=== PATIENT | female | born 1960 | race Caucasian/White ===

== ENCOUNTER → 2021-10-21 12:44 | Outpatient (BNVA) | payer OTHER, SELFPAY | PROVIDERS: PCP Internal Medicine; Visit Provider Nurse Practitioner Family | DX: G43.009 Migraine without aura, not intractable, without status migrainosus (principal); G40.909 Epilepsy, unspecified, not intractable, without status epilepticus; R25.9 Unspecified abnormal involuntary movements | CPT/HCPCS: 99212 ==

== ENCOUNTER → 2022-01-20 12:39 | Outpatient (BNVA) | payer OTHER, SELFPAY | PROVIDERS: PCP Internal Medicine; Visit Provider Nurse Practitioner Family | DX: G43.009 Migraine without aura, not intractable, without status migrainosus (principal); R25.9 Unspecified abnormal involuntary movements; G40.909 Epilepsy, unspecified, not intractable, without status epilepticus; G93.1 Anoxic brain damage, not elsewhere classified; Z79.899 Other long term (current) drug therapy | CPT/HCPCS: 99212 ==

== ENCOUNTER → 2022-05-19 12:29 | Outpatient (BNVA) | payer OTHER, SELFPAY | PROVIDERS: PCP Internal Medicine; Visit Provider Nurse Practitioner Family | DX: G40.909 Epilepsy, unspecified, not intractable, without status epilepticus (principal); R25.9 Unspecified abnormal involuntary movements; G43.009 Migraine without aura, not intractable, without status migrainosus; G93.1 Anoxic brain damage, not elsewhere classified | CPT/HCPCS: 99212 ==

== ENCOUNTER → 2022-10-27 12:05 | Outpatient (BNVA) | payer OTHER, SELFPAY | PROVIDERS: PCP Internal Medicine; Visit Provider Nurse Practitioner Family | DX: G43.009 Migraine without aura, not intractable, without status migrainosus (principal) | CPT/HCPCS: 99212 ==

== ENCOUNTER 2023-04-12 12:14 | Outpatient (AMB) | payer OTHER, SELFPAY ==
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
[2023-04-12 12:54] VITALS: BP 118/78; PULSE 73; O2SAT 98; BMI 32.8
== END 2023-04-12 13:37 | disposition home or self-care (01) ==
PROVIDERS: Visit Provider Nurse Practitioner Family
DX: G40.909 Epilepsy, unspecified, not intractable, without status epilepticus (principal); R25.9 Unspecified abnormal involuntary movements; G43.009 Migraine without aura, not intractable, without status migrainosus; G93.1 Anoxic brain damage, not elsewhere classified
CPT/HCPCS: 99214

== ENCOUNTER → 2023-04-12 12:14 | Outpatient (BNVA) | payer OTHER, SELFPAY | PROVIDERS: Visit Provider Nurse Practitioner Family | DX: G40.909 Epilepsy, unspecified, not intractable, without status epilepticus (principal); G43.009 Migraine without aura, not intractable, without status migrainosus; G93.1 Anoxic brain damage, not elsewhere classified; R25.9 Unspecified abnormal involuntary movements | CPT/HCPCS: 99212 ==

== ENCOUNTER 2023-11-12 14:27 | Outpatient (AMB) | payer OTHER, SELFPAY ==
[2023-11-12 14:29] VITALS: BP 128/70; PULSE 93; O2SAT 98; BMI 34.0
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
== END 2023-11-12 15:18 | disposition home or self-care (01) ==
PROVIDERS: PCP Internal Medicine; Visit Provider Nurse Practitioner Family
DX: G43.009 Migraine without aura, not intractable, without status migrainosus (principal); G40.909 Epilepsy, unspecified, not intractable, without status epilepticus; R25.9 Unspecified abnormal involuntary movements; G93.1 Anoxic brain damage, not elsewhere classified
CPT/HCPCS: 99214

== ENCOUNTER → 2023-11-12 14:27 | Outpatient (BNVA) | payer OTHER, SELFPAY | PROVIDERS: PCP Internal Medicine; Visit Provider Nurse Practitioner Family | DX: G43.009 Migraine without aura, not intractable, without status migrainosus (principal); G40.909 Epilepsy, unspecified, not intractable, without status epilepticus; R25.9 Unspecified abnormal involuntary movements; G93.1 Anoxic brain damage, not elsewhere classified | CPT/HCPCS: 99212 ==

== ENCOUNTER 2024-02-28 10:50 | Outpatient (AMB) | payer OTHER, SELFPAY ==
--- NOTE | 2024-02-28 11:10 | A.OFFVIS_ITS ---
Vital Signs 02/28/24 11:12 Height 5 ft 4 in Weight 192 lb BMI 33.0 BP 120/72 Blood Pressure Location Rt brachial Position Sitting Pulse 84 Pulse Source Pulse Oximeter Pulse Oximetry (%) 97 Oxygen Delivery Method Room Air Intake Visit Reasons: Follow Up Intake Note: Patient presents for follow up. Patient has no concerns today. Allergies bee venom protein (honey bee) Allergy (Severe, Verified 02/28/24 11:13) Anaphylaxis Penicillins Allergy (Severe, Verified 02/28/24 11:13) Anaphylaxis Sulfa (Sulfonamide Antibiotics) Allergy (Severe, Verified 02/28/24 11:13) Hives mayonnaise Allergy (Intermediate, Verified 02/28/24 11:13) Hives aspirin Allergy (Mild, Verified 02/28/24 11:13) Unknown rofecoxib [From Vioxx] Allergy (Unknown, Verified 02/28/24 11:13) Unknown erythromycin Allergy (Severe, Uncoded 02/28/24 11:13) Anaphylaxis Medication List - Last Reconciled 02/28/24 by DELBERT Breen atorvastatin mg PO blood-glucose sensor (Dexcom G6 Sensor device) As directed clonazepam 0.25 - 0.5 mg (1 - 2 x 0.25 mg) PO BID PRN 30 days clopidogrel 75 mg PO DAILY gabapentin 300 mg PO DAILY galcanezumab-gnlm (Emgality Pen) 120 mg subcut ONCE 30 days [gammacore saphire 2 2-minute stimulations to 1 side of the neck TID, may repeat in 20 minutes if no effect] glipizide 5 mg PO BID indomethacin 25 mg PO BEDTIME lorazepam 1 mg PO TID PRN 30 days metformin ER 500 mg PO DAILY oxcarbazepine 300 mg PO BID 30 days sertraline 50 mg PO DAILY trazodone 100 mg PO BEDTIME ubrogepant (Ubrelvy) 50 - 100 mg (0.5 - 1 x 100 mg) PO ONCE PRN 30 days HPI Comments Details: 64-yr-old female presents for f/u visit. Pt is scheduled for Left knee labrum tear repair on 03/24/24 through [facility] at [facility]. [facility] has requested surgical clearance from us. She did see her PCP at the [place] yesterday- had She also saw endocrinology at the [place] yesterday. Her HgA1C was 9.3%. She was advised to start insulin and was referred to a life educator. She states her seizure like activity- the tremor and skaking0 has been stable, however had a rough night . [place] she would have breakthrough seizure like activity, however was able to suppress this with her prn Lorazepam. She felt this was triggered by the stress of learning she may need to start insulin. Has not had any seizure activity a/w LOC. She is tolerating the increase in Trileptal well. Her migraines have been well-controlled. 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 Mild dysarthria Mild antalgic gait Antalgic gait- wearing left knee brace General: patient oriented x3 Cranial nerves: Yes CN's II-XII intact bilaterally Cognition (Neuro): normal cognition Psych Appearance: grossly normal Mental Status: mental status grossly normal Speech and movement: Normal speech and movement present Affect: normal affect Attitude: cooperative Assessment & Plan Assessment & Plan (1) Migraine without aura: Code(s): G43.009 - Migraine without aura, not intractable, without status migrainosus Category: Medical (2) Epilepsy: Code(s): G40.909 - Epilepsy, unspecified, not intractable, without status epilepticus Category: Medical (3) Abnormal movements: Code(s): R25.9 - Unspecified abnormal involuntary movements Category: Medical (4) Hypoxic brain injury: Comment: In 1978 Code(s): G93.1 - Anoxic brain damage, not elsewhere classified Category: Medical Plan From a neurological standpoint, pt may undergo upcoming left knee surgical repair. Pt should continue her current medication regimen. 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 Nutrition education information shared w/ pt- [email or web address], ADA diabetes & food to review before her upcoming Diabetes education appt. For seizures/abnormal movements: Improved with increased Trileptal dose. Continue Trileptal 300mg bid. Continue Lorazepam 1mg tid prn. [facility] ? For episodic migraines: Continue Emgality 120 mg sc q month for migraine prevention.? Consider using a mail-order specialty pharmacy or [facility]. Ubrelvy 100mg prn, MR in 2 hrs (max 200mg per day). Try taking at the 1st sign of seeing spots and hold Lorazepam- to help elicit if these are epileptic versus migraine aura s/s. Continue GammaCore vagal nerve stimulator for both episodic migraine preventive and acute treatment. Patient has previously failed amitriptyline and Topamax.? Treatment contraindications: Sumatriptan-generalized tonic clonic seizure dz. She is not a candidate to use beta-blockers or antihypertensive agents due to risk for hypotension. ? f/u in 6 months or sooner prn. Coding Level of Care Code Est Pt Level 4 (38501) Diagnoses Migraine without aura G43.009 Epilepsy G40.909 Abnormal movements R25.9 Hypoxic brain injury G93.1
[2024-02-28 11:12] VITALS: BP 120/72; PULSE 84; O2SAT 97; BMI 33.0
== END 2024-02-28 11:48 | disposition home or self-care (01) ==
PROVIDERS: PCP Internal Medicine; Visit Provider Nurse Practitioner Family
DX: G43.009 Migraine without aura, not intractable, without status migrainosus (principal); G40.909 Epilepsy, unspecified, not intractable, without status epilepticus; R25.9 Unspecified abnormal involuntary movements; G93.1 Anoxic brain damage, not elsewhere classified
CPT/HCPCS: 99214

== ENCOUNTER → 2024-02-28 10:50 | Outpatient (BNVA) | payer OTHER, SELFPAY | PROVIDERS: PCP Internal Medicine; Visit Provider Nurse Practitioner Family | DX: G93.1 Anoxic brain damage, not elsewhere classified (principal); R25.9 Unspecified abnormal involuntary movements; G40.909 Epilepsy, unspecified, not intractable, without status epilepticus; G43.009 Migraine without aura, not intractable, without status migrainosus | CPT/HCPCS: 99212 ==

== ENCOUNTER 2024-05-13 09:20 | Outpatient (AMB) | payer OTHER, SELFPAY ==
[2024-05-13 09:48] VITALS: BP 118/70; BMI 33.1
--- NOTE | 2024-05-13 09:48 | A.OFFVIS_ITS ---
Vital Signs 05/13/24 09:48 Height 5 ft 4 in Weight 193 lb BMI 33.1 BP 118/70 Blood Pressure Location Rt brachial Position Sitting Intake Visit Reasons: 6m follow up Intake Note: Patient presents for follow up Allergies bee venom protein (honey bee) Allergy (Severe, Verified 05/13/24 09:51) Anaphylaxis Penicillins Allergy (Severe, Verified 05/13/24 09:51) Anaphylaxis Sulfa (Sulfonamide Antibiotics) Allergy (Severe, Verified 05/13/24 09:51) Hives mayonnaise Allergy (Intermediate, Verified 05/13/24 09:51) Hives aspirin Allergy (Mild, Verified 05/13/24 09:51) Unknown rofecoxib [From Vioxx] Allergy (Unknown, Verified 05/13/24 09:51) Unknown erythromycin Allergy (Severe, Uncoded 05/13/24 09:51) Anaphylaxis Medication List - Last Reconciled 05/13/24 by DELBERT Breen atorvastatin mg PO blood-glucose sensor ([employer] G6 Sensor device) As directed clonazepam 0.25 - 0.5 mg (1 - 2 x 0.25 mg) PO BID PRN 30 days clopidogrel 75 mg PO DAILY gabapentin 300 mg PO DAILY galcanezumab-gnlm (Emgality Pen) 120 mg subcut ONCE 30 days [gammacore saphire 2 2-minute stimulations to 1 side of the neck TID, may repeat in 20 minutes if no effect] glipizide 5 mg PO BID indomethacin 25 mg PO BEDTIME lorazepam 1 mg PO TID PRN 30 days metformin ER 500 mg PO DAILY oxcarbazepine 300 mg PO BID 30 days sertraline 50 mg PO DAILY trazodone 100 mg PO BEDTIME ubrogepant (Ubrelvy) 50 - 100 mg (0.5 - 1 x 100 mg) PO ONCE PRN 30 days HPI Comments Details: 64-yr-old female presents for f/u visit of seizure, involuntary movements, and migraine. Pt is accompanied by her . Pt underwent Left knee labrum tear repair on 04/18/24 through [facility] at [facility]. Pt reports she has since had burning pains running down from the knee into her wilde. She did trip yesterday, overall, feels like she needs to lift her LLE higher when she is walking. She states she is doing home PT exercises but not home PT. She does note that she accidentally taking atorvastatin 80mg instead of 40mg- as she did not realize that she was supposed to cut the 80mg tab in half. [facility]. She states she has only had increased pain in the LLE. Denies other/new muscle cramps, urinary color changes, abd pain. She states her seizure like activity is not too good . Her episodes are triggered by the bad weather changes. She is having longer episodes. She is needing to take lorazepam, and then a second dose within an hour as she continues to have tremors and full body generalized spasticity. Has not had any seizure activity a/w LOC. She was taking Trileptal 300mg bid- but this causing daytime sleepiness- so she decreased it to 150mg qam and 300mg. She is wondering if she would benefit from increasing Trileptal or Lorazepam dose. She has not been having any recent migraines. 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 Left facial hemispasm- Slightly more pronounced dysarthria Gait a bit more unsteady, increased left high step. Decreased left foot taps. No trmeor. General: patient oriented x3 Cranial nerves: Yes CN's II-XII intact bilaterally Cognition (Neuro): normal cognition Psych Appearance: grossly normal Mental Status: mental status grossly normal Affect: normal affect Attitude: cooperative Assessment & Plan Assessment & Plan (1) Epilepsy: Code(s): G40.909 - Epilepsy, unspecified, not intractable, without status epilepticus Category: Medical (2) Abnormal movements: Code(s): R25.9 - Unspecified abnormal involuntary movements Category: Medical (3) Migraine without aura: Code(s): G43.009 - Migraine without aura, not intractable, without status migrainosus Category: Medical (4) Hypoxic brain injury: Comment: In 1978 Code(s): G93.1 - Anoxic brain damage, not elsewhere classified Category: Medical (5) Spasticity: Code(s): R25.2 - Cramp and spasm Category: Medical Plan Pt's baseline neuro deficits appear more pronounced today, ? if this is r/t recent surgery, poor sleep, left knee pain, increased weather changes. Will check labs. I do not think f/u head imaging is indicated at this time, as there are no new neuro s/s. Advised pt to discuss referring her for a new LLE AFO fitting as she no longer has her old AFO and is tripping more on her left foot. For seizures/abnormal movements: Pt has reduced her Trileptal dose from 300mg bid t0 150mg qam and 300mg qhs, however she is now having increased episodes. For now Trileptal 150mg qam and 300mg qhs. Will check labs. Upon review, consider increasing Trileptal to 150mg bid and 300mg qhs or trying Aptiom. Continue Lorazepam 1mg tid prn- i would not increase this further at this time. For episodic migraines: Continue Emgality 120 mg sc q month for migraine prevention.? Consider using a mail-order specialty pharmacy or sending through the [facility]. Ubrelvy 100mg prn, MR in 2 hrs (max 200mg per day). Try taking at the 1st sign of seeing spots and hold Lorazepam- to help elicit if these are epileptic versus migraine aura s/s. Continue GammaCore vagal nerve stimulator for both episodic migraine preventive and acute treatment. Patient has previously failed amitriptyline and Topamax.? Treatment contraindications: Sumatriptan-generalized tonic clonic seizure dz. She is not a candidate to use beta-blockers or antihypertensive agents due to risk for hypotension. ? f/u in 3-6 months or sooner prn. Orders: Orders Complete Blood Count Auto Diff Today G40.909 - Epilepsy, unspecified, not intractable, without status epilepticus, G43.009 - Migraine without aura, not intractable, without status migrainosus, G93.1 - Anoxic brain damage, not elsewhere classified, R25.2 - Cramp and spasm, R25.9 - Unspecified abnormal involuntary movements Creatine Kinase Total Today G40.909 - Epilepsy, unspecified, not intractable, without status epilepticus, G43.009 - Migraine without aura, not intractable, without status migrainosus, G93.1 - Anoxic brain damage, not elsewhere classified, R25.2 - Cramp and spasm, R25.9 - Unspecified abnormal involuntary movements Magnesium Today G40.909 - Epilepsy, unspecified, not intractable, without status epilepticus, G43.009 - Migraine without aura, not intractable, without status migrainosus, G93.1 - Anoxic brain damage, not elsewhere classified, R25.2 - Cramp and spasm, R25.9 - Unspecified abnormal involuntary movements CRP High Sensitivity Today G40.909 - Epilepsy, unspecified, not intractable, without status epilepticus, G43.009 - Migraine without aura, not intractable, without status migrainosus, G93.1 - Anoxic brain damage, not elsewhere classified, R25.2 - Cramp and spasm, R25.9 - Unspecified abnormal involuntary movements TSH reflex Free T4 Today G40.909 - Epilepsy, unspecified, not intractable, without status epilepticus, G43.009 - Migraine without aura, not intractable, without status migrainosus, G93.1 - Anoxic brain damage, not elsewhere classified, R25.2 - Cramp and spasm, R25.9 - Unspecified abnormal involuntary movements Vitamin B12 and Folate Today G40.909 - Epilepsy, unspecified, not intractable, without status epilepticus, G43.009 - Migraine without aura, not intractable, without status migrainosus, G93.1 - Anoxic brain damage, not elsewhere classified, R25.2 - Cramp and spasm, R25.9 - Unspecified abnormal involuntary movements Comprehensive Met. Panel Today G40.909 - Epilepsy, unspecified, not intractable, without status epilepticus, G43.009 - Migraine without aura, not intractable, without status migrainosus, G93.1 - Anoxic brain damage, not elsewhere classified, R25.2 - Cramp and spasm, R25.9 - Unspecified abnormal involuntary movements Erythrocyte Sedimentation Rate Today G40.909 - Epilepsy, unspecified, not intractable, without status epilepticus, G43.009 - Migraine without aura, not intractable, without status migrainosus, G93.1 - Anoxic brain damage, not elsewhere classified, R25.2 - Cramp and spasm, R25.9 - Unspecified abnormal involuntary movements Coding Level of Care Code Est Pt Level 4 (20062) Diagnoses Epilepsy G40.909 Abnormal movements R25.9 Migraine without aura G43.009 Hypoxic brain injury G93.1 Spasticity R25.2
== END 2024-05-13 10:31 | disposition home or self-care (01) ==
PROVIDERS: PCP Internal Medicine; Visit Provider Nurse Practitioner Family
DX: G40.909 Epilepsy, unspecified, not intractable, without status epilepticus (principal); R25.9 Unspecified abnormal involuntary movements; G43.009 Migraine without aura, not intractable, without status migrainosus; G93.1 Anoxic brain damage, not elsewhere classified; R25.2 Cramp and spasm
CPT/HCPCS: 99214

== ENCOUNTER 2024-05-13 10:32 | Outpatient (REF) | payer OTHER, SELFPAY ==
[2024-05-13 17:52] LABS: MANUAL DIFF FLAG NO
[2024-05-13 18:14] LABS: Basophils Percent Auto 0.4 % (0-2); Eosinophils Absolute Auto 0.2 X10*3/uL (0.0-0.4); Eosinophils Percent Auto 2.6 % (0-4); Hematocrit 38.6 % (37.0-47.0); Hemoglobin 13.1 g/dl (12.0-16.0); Imm Gran Abs Auto 0.04 X10*3/uL (0.00-0.03); Imm Gran Pct Auto 0.5 % (0.0-0.4); Lymphocytes Absolute Auto 1.3 X10*3/uL (1.2-4.9); Lymphocytes Percent Auto 17.9 % (20-40); Mean Corpuscular HGB Conc 33.9 g/dl (31.0-35.0); Mean Corpuscular Hemoglobin 28.8 pg (27.0-33.0); Mean Corpuscular Volume 84.8 fL (80.0-98.0); Mean Platelet Volume 9.4 fL (9.4-12.3); Monocytes Absolute Auto 0.4 X10*3/uL (0.1-1.2); Monocytes Percent Auto 4.8 % (2-11); Neutrophils Absolute Auto 5.4 x10*3/uL (2.0-8.3); Neutrophils Percent Auto 73.8 % (45-73); Platelet Count 301 X10*3/uL (160-400); Red Blood Count 4.55 X10*6/uL (4.20-5.50); Red Cell Distribution Width 13.5 % (11.0-16.0); White Blood Count 7.3 X10*3/uL (4.8-10.8)
[2024-05-13 18:25] LABS: Alanine Aminotransferase 33 U/L (0-31); Albumin Level 4.1 g/dL (3.5-5.0); Alkaline Phosphatase 168 U/L (39-117); Anion Gap 12 (12-20); Aspartate Amino Transferase 21 U/L (5-31); Bilirubin Total 0.2 mg/dL (0.0-1.0); Blood Urea Nitrogen 17 mg/dL (9-16); Calcium 9.8 mg/dL (8.4-10.2); Carbon Dioxide 28 mmol/L (22-29); Chloride 105 mmol/L (96-108); Estimated Glomerular Filt Rate > 60; Glucose Random 217 mg/dL (60-115); Magnesium 1.8 mg/dL (1.6-2.6); Sodium 141 mmol/L (135-145); Total Protein 7.6 g/dL (6.5-8.0)
[2024-05-13 18:41] LABS: TSH reflex Free T4 0.81 uIU/mL (0.32-4.0)
[2024-05-13 18:59] LABS: Folate 13.9 ng/mL (> or = 4.0); Vitamin B12 603 pg/mL (200-900)
[2024-05-13 19:20] LABS: Erythrocyte Sedimentation Rate 58 MM/HR (0-20)
[2024-05-14 09:03] LABS: CRP High Sensitivity 8.3 mg/L
== END 2024-05-13 10:33 | disposition home or self-care (01) ==
LOC: HO.HKASLDS 10:32
PROVIDERS: Visit Provider Nurse Practitioner Family
DX: G40.909 Epilepsy, unspecified, not intractable, without status epilepticus (principal); G43.009 Migraine without aura, not intractable, without status migrainosus; R25.2 Cramp and spasm; G93.1 Anoxic brain damage, not elsewhere classified; R25.9 Unspecified abnormal involuntary movements; Z79.899 Other long term (current) drug therapy; Z98.890 Other specified postprocedural states
CPT/HCPCS: 36415; 80053; 82550; 82607; 82746; 83735; 84443; 85025; 85652; 86141; 99212

== ENCOUNTER → 2024-05-13 | Outpatient (BNVA) | payer OTHER, SELFPAY | PROVIDERS: PCP Internal Medicine; Visit Provider Nurse Practitioner Family | DX: G40.909 Epilepsy, unspecified, not intractable, without status epilepticus (principal); R25.9 Unspecified abnormal involuntary movements; G93.1 Anoxic brain damage, not elsewhere classified; Z91.85 Personal history of military service | CPT/HCPCS: 99212 ==

== ENCOUNTER 2024-06-02 12:30 | Outpatient (REF) | payer OTHER, SELFPAY ==
--- NOTE | ~2024-06-02 | MR_ITS ---
EXAMINATION: MR BRAIN WITHOUT CONTRAST CLINICAL INFORMATION: Epilepsy. Dysarthria. Increased spasticity history of hypoxia. Spasm. COMPARISON: No priors. Prior CT brain dated February 08, 2011 is not available on PACS system. TECHNIQUE: MRI of the brain was obtained using routine sequences without contrast. FINDINGS: No restricted diffusion. No acute intracranial hemorrhage, mass effect, midline shift, hydrocephalus or herniation. Hutchins-white matter differentiation is normal. Posterior cranial fossa contents are normal. Sellar/suprasellar region is normal. Craniocervical junction is intact and normal. Slight asymmetric volume loss without signal abnormality, left hippocampus. There is no prominence of the temporal horns of the lateral ventricles. Flow-void signal within the main cerebral vessels is normal. MR/MR head/brain wo con IMPRESSION: No acute stroke or acute brain abnormality. Electronically signed by: Geovany Marina MD 06/02/2024 01:56 PM EDT
== END 2024-06-02 12:31 | disposition home or self-care (01) ==
LOC: HO.MRI 12:30
PROVIDERS: PCP Internal Medicine; Visit Provider Nurse Practitioner Family
DX: R25.2 Cramp and spasm (principal); G93.1 Anoxic brain damage, not elsewhere classified; R25.9 Unspecified abnormal involuntary movements
CPT/HCPCS: 70551

== ENCOUNTER → 2024-06-02 12:40 | Outpatient (BNV) | payer OTHER, SELFPAY | PROVIDERS: PCP Internal Medicine; Visit Provider Radiology Diagnostic Radiology | DX: R47.1 Dysarthria and anarthria (principal); G40.909 Epilepsy, unspecified, not intractable, without status epilepticus | CPT/HCPCS: 70551 ==

== ENCOUNTER 2024-06-05 07:17 | Outpatient (REF) | payer OTHER, SELFPAY ==
[2024-06-05 07:44] LABS: MANUAL DIFF FLAG NO
[2024-06-05 08:46] LABS: Basophils Percent Auto 0.5 % (0-2); Eosinophils Absolute Auto 0.2 X10*3/uL (0.0-0.4); Eosinophils Percent Auto 2.4 % (0-4); Hematocrit 35.8 % (37.0-47.0); Hemoglobin 11.8 g/dl (12.0-16.0); Imm Gran Abs Auto 0.02 X10*3/uL (0.00-0.03); Imm Gran Pct Auto 0.3 % (0.0-0.4); Lymphocytes Absolute Auto 1.5 X10*3/uL (1.2-4.9); Lymphocytes Percent Auto 24.3 % (20-40); Mean Corpuscular Hemoglobin 28.6 pg (27.0-33.0); Mean Corpuscular Volume 86.7 fL (80.0-98.0); Mean Platelet Volume 9.3 fL (9.4-12.3); Monocytes Absolute Auto 0.4 X10*3/uL (0.1-1.2); Neutrophils Absolute Auto 4.1 x10*3/uL (2.0-8.3); Neutrophils Percent Auto 66.5 % (45-73); Platelet Count 257 X10*3/uL (160-400); Red Blood Count 4.13 X10*6/uL (4.20-5.50); Red Cell Distribution Width 13.4 % (11.0-16.0); White Blood Count 6.1 X10*3/uL (4.8-10.8)
[2024-06-05 09:22] LABS: Alanine Aminotransferase 27 U/L (0-31); Albumin Level 3.7 g/dL (3.5-5.0); Alkaline Phosphatase 151 U/L (39-117); Anion Gap 11 (12-20); Aspartate Amino Transferase 20 U/L (5-31); Bilirubin Total 0.3 mg/dL (0.0-1.0); Blood Urea Nitrogen 17 mg/dL (9-16); Calcium 9.4 mg/dL (8.4-10.2); Carbon Dioxide 28 mmol/L (22-29); Chloride 105 mmol/L (96-108); Estimated Glomerular Filt Rate > 60; Glucose Random 173 mg/dL (60-115); Potassium 4.1 mmol/L (3.3-5.1); Sodium 140 mmol/L (135-145); Total Protein 6.7 g/dL (6.5-8.0)
[2024-06-05 09:26] LABS: Erythrocyte Sedimentation Rate 44 MM/HR (0-20)
[2024-06-06 11:08] LABS: CRP High Sensitivity 4.8 mg/L
[2024-06-10 01:17] LABS: Oxcarbazepine 10.1 mcg/mL (8.0-35.0)
== END 2024-06-05 07:18 | disposition home or self-care (01) ==
LOC: HO.LAB 07:17
PROVIDERS: Visit Provider Nurse Practitioner Family
DX: G40.909 Epilepsy, unspecified, not intractable, without status epilepticus (principal); R47.1 Dysarthria and anarthria; R70.0 Elevated erythrocyte sedimentation rate; G43.009 Migraine without aura, not intractable, without status migrainosus; R25.2 Cramp and spasm; G93.1 Anoxic brain damage, not elsewhere classified; R25.9 Unspecified abnormal involuntary movements
CPT/HCPCS: 36415; 80053; 80339; 85025; 85652; 86141

== ENCOUNTER 2024-07-09 09:31 | Outpatient (AMB) | payer OTHER, SELFPAY ==
[2024-07-09 09:41] VITALS: BP 130/70; PULSE 84; O2SAT 98; BMI 33.0
--- NOTE | 2024-07-09 09:41 | MHC.OFFVIS ---
Vital Signs 07/09/24 09:41 Height 5 ft 4 in Weight 192 lb BMI 33.0 BP 130/70 Blood Pressure Location Lt brachial Position Sitting Pulse 84 Pulse Source Pulse Oximeter Pulse Oximetry (%) 98 Oxygen Delivery Method Room Air Intake Visit Reasons: Follow Up [employer] Required: No Accompanied by: Spouse Allergies bee venom protein (honey bee) Allergy (Severe, Verified 07/09/24 09:43) Anaphylaxis Penicillins Allergy (Severe, Verified 07/09/24 09:43) Anaphylaxis Sulfa (Sulfonamide Antibiotics) Allergy (Severe, Verified 07/09/24 09:43) Hives mayonnaise Allergy (Intermediate, Verified 07/09/24 09:43) Hives aspirin Allergy (Mild, Verified 07/09/24 09:43) Unknown rofecoxib [From Vioxx] Allergy (Unknown, Verified 07/09/24 09:43) Unknown erythromycin Allergy (Severe, Uncoded 05/13/24 09:51) Anaphylaxis Medication List - Last Reconciled 07/09/24 by DELBERT Breen atorvastatin mg PO blood-glucose sensor ([email or web address] G6 Sensor device) As directed clopidogrel 75 mg PO DAILY gabapentin 300 mg PO DAILY galcanezumab-gnlm (Emgality Pen) 120 mg subcut ONCE 30 days [gammacore saphire 2 2-minute stimulations to 1 side of the neck TID, may repeat in 20 minutes if no effect] glipizide 5 mg PO BID indomethacin 25 mg PO BEDTIME lorazepam 1 mg PO TID PRN 30 days metformin ER 500 mg PO DAILY oxcarbazepine 300 mg PO BID 30 days sertraline 50 mg PO DAILY trazodone 100 mg PO BEDTIME ubrogepant (Ubrelvy) 50 - 100 mg (0.5 - 1 x 100 mg) PO ONCE PRN 30 days HPI Comments Details: 64-yr-old female presents for urgent follow-up for increased ?spasticity and balls? in setting of seizure, involuntary movements, and migraine. Pt is accompanied by her . Pt reports that she has been having increased falls, however she clarifies this is one fall this past Sat. Patient had called the office with complaint of increased spasticity and shakiness. We trialed patient on diazepam 2 mg, which subsided the episode, but made her feel loopy so she only took 1 dose. Sense, she is still noticing increased shakiness and seizures, especially around 3am when she gets up to go to the bathroom or between 9am-2pm. The shakiness can be whole body, and can last between 5 minutes and an hour. The episode is harder to treat when it happens in public, such as when she is out at a restaurant. It usually responds to lorazepam, however can take longer for lorazepam to take effect now. is asking for an injectable version of lorazepam. She is is overall feeling more off-balance and weaker. Patient did undergo an interval brain MRI without contrast on 06/02/2024, which was unremarkable Patient also notes that she was admitted to [facility] on 06/25/24 d/t acute on chronic pancreatitis with clear trigger for acute exacerbation. Patient denies any alcohol intake Work-up was notable for: Elevated lipase 888H, on discharge decreased to 274 H. On 06/18/24, lipase was 26 NL Positive UA for WBC and bacteria- unfortunately I am not able to access culture report. Abd CT: No acute abnormality on noncontrast CT of the abdomen and pelvis. No imaging evidence for pancreatitis. No regional stranding or fluid collection. Recommend further correlation with pancreatic enzyme markers. There is similar atrophy of the pancreas with relative fullness at the level of the pancreatic head when compared to the CT of 06/05/2024 and 12/04/2021, which could relate to relative sparing. Pt states she was d/c'd home w/o home care sevrices, though d/c paperwork indicates these were ordered. Since being home, pt notes she still has a poor appetite. She is feeling overall more week. [facility] Discharge Labs WBC 9.1 k/mm3 ()? 06/26/2024 06:05 RBC 3.96 m/mm3 (Low)? 06/26/2024 06:05 Hgb 11.1 Gm/dL (Low)? 06/26/2024 06:05 Hct 34.0 % (Low)? 06/26/2024 06:05 MCV 85.9 femtoliters ()? 06/26/2024 06:05 MCH 28.0 pg ()? 06/26/2024 06:05 MCHC 32.6 Gm/dL (Low)? 06/26/2024 06:05 Platelet Count 226 k/mm3 ()? 06/26/2024 06:05 RDW-SD 41.6 femtoliters ()? 06/26/2024 06:05 MPV 9.2 femtoliters (Low)? 06/26/2024 06:05 Nucleated RBC (Automated) 0.0 #/100 WBC'S ()? 06/26/2024 06:05 Abs. NRBC 0.0 k/mm3 ()? 06/26/2024 06:05 Abs. Neut 8.2 k/mm3 (High)? 06/25/2024 08:32 Abs. Lymph 1.5 k/mm3 ()? 06/25/2024 08:32 Abs. [place] 0.6 k/mm3 ()? 06/25/2024 08:32 Abs. Eo 0.1 k/mm3 ()? 06/25/2024 08:32 Abs. Baso 0.0 k/mm3 ()? 06/25/2024 08:32 Neut % 78.0 % (High)? 06/25/2024 08:32 Lymph % 14.3 % (Low)? 06/25/2024 08:32 [place] % 6.0 % ()? 06/25/2024 08:32 Eos % 1.0 % ()? 06/25/2024 08:32 Baso % 0.2 % ()? 06/25/2024 08:32 Imm Gran 0.5 % ()? 06/25/2024 08:32 Abs. Imm Gran 0.1 k/mm3 ()? 06/25/2024 08:32 High Sensitivity Troponin (HSTnT) <6 ng/L ()? 06/25/2024 08:32 ? ? ? Sodium 136 mmol/L ()? 06/26/2024 06:05 Potassium 3.9 mmol/L ()? 06/26/2024 06:05 Chloride 108 mmol/L (High)? 06/26/2024 06:05 Bicarbonate Level 25 mmol/L ()? 06/26/2024 06:05 Anion Gap 3 (Low)? 06/26/2024 06:05 Glucose Level 164 mg/dL (High)? 06/25/2024 08:32 Glucose, POC 96 mg/dL ()? 06/27/2024 07:04 BUN 15 mg/dL ()? 06/26/2024 06:05 Creatinine-Blood 0.65 mg/dL ()? 06/26/2024 06:05 Estimated GFR Creatinine 99 ML/MIN/1.73 M2 ()? 06/26/2024 06:05 Calcium 9.0 mg/dL ()? 06/25/2024 08:32 Protein, Total 7.1 Gm/dL ()? 06/25/2024 08:32 Albumin 4.0 Gm/dL ()? 06/25/2024 08:32 AG Ratio 1.3 ()? 06/25/2024 08:32 Alkaline Phosphatase 164 units/L (High)? 06/25/2024 08:32 Lipase 274 units/L (High)? 06/26/2024 06:05 AST (SGOT) 15 units/L ()? 06/25/2024 08:32 ALT (SGPT) 24 units/L ()? 06/25/2024 08:32 Bilirubin, Total 0.3 mg/dL ()? 06/25/2024 08:32 Lactate 1.3 mmol/L ()? 06/25/2024 08:32 UA/URINALYSIS Appear/Color, Urine YELLOW ()? 06/25/2024 09:35 Clarity SL.CLOUDY (Abnormal)? 06/25/2024 09:35 Specific [place], Urine 1.025 ()? 06/25/2024 09:35 pH, Urine 5.5 ()? 06/25/2024 09:35 Albumin, Urine TRACE (Abnormal)? 06/25/2024 09:35 Glucose, Urine NEGATIVE (N)? 06/25/2024 09:35 Ketones, Urine NEGATIVE (N)? 06/25/2024 09:35 Bilirubin, Urine NEGATIVE (N)? 06/25/2024 09:35 Hemoglobin, Urine NEGATIVE (N)? 06/25/2024 09:35 Nitrite, Urine NEGATIVE (N)? 06/25/2024 09:35 Leukocyte, Urine 1+ (Abnormal)? 06/25/2024 09:35 Urobilinogen NORMAL mg/dL (N)? 06/25/2024 09:35 WBC's, Urine 12 /HPF (High)? 06/25/2024 09:35 RBC's, Urine 1 /HPF ()? 06/25/2024 09:35 Bacteria HEAVY HPF (Abnormal)? 06/25/2024 09:35 Squamous Epith 4 /HPF ()? 06/25/2024 09:35 Mucus SLIGHT /LPF ()? 06/25/2024 09:35 Budding Yeast HEAVY /HPF ()? 06/25/2024 09:35 Hold Urine Culture Testing available 48 hours from time of collection. ()? 06/25/2024 09:35 ? ? ? 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 Left facial hemispasm- Less pronounced dysarthria today Slow to stand, gait is steadier today, slightly wide-based with short steps. No tremor. General: patient oriented x3 Cognition (Neuro): normal cognition Psych Appearance: grossly normal Mental Status: mental status grossly normal Affect: normal affect Attitude: cooperative Assessment & Plan Assessment & Plan (1) Pancreatitis: Code(s): K85.90 - Acute pancreatitis without necrosis or infection, unspecified Category: Medical (2) Fall: Code(s): W19.XXXA - Unspecified fall, initial encounter Category: Medical (3) Generalized weakness: Code(s): R53.1 - Weakness Category: Medical (4) Hypoxic brain injury: Comment: In 1978 Code(s): G93.1 - Anoxic brain damage, not elsewhere classified Category: Medical (5) Abnormal movements: Code(s): R25.9 - Unspecified abnormal involuntary movements Category: Medical (6) Dysarthria: Code(s): R47.1 - Dysarthria and anarthria Category: Medical (7) Spasticity: Code(s): R25.2 - Cramp and spasm Category: Medical (8) Epilepsy: Code(s): G40.909 - Epilepsy, unspecified, not intractable, without status epilepticus Category: Medical (9) Migraine without aura: Code(s): G43.009 - Migraine without aura, not intractable, without status migrainosus Category: Medical Plan Reviewed interval brain MRI without contrast, unremarkable. Reviewed interval [facility] notes and lab workup: Notable for markedly elevated lipase of 880 compared to the week before which was normal at 36. Patient states she no longer has a GI specialist, we will request that the [facility] refer her to a new mottler machine feeder. Workup also revealed UA concerning for UTI, it does not appear that this was treated. Patient denies burning, however endorses odorous urine. We will check CBC, CMP, updated lipase level, UA C&S- lab slip was given to patient she will do at the [facility] today Discussed that I suspect that patient has generalized weakness, recent fall, and shakiness may be multifactorial, related to deconditioning, poor p.o. intake, and in some cases anxiety related to eating in restaurants with other people looking at her. I do not think these prolonged episodes of shakiness are seizure or spasticity. Advised that intractable version of lorazepam is not indicated at this time. We will discontinue Diazepam order, cause cognitive side effects. Start taking lorazepam 1 mg q.d. at 09:00, may use b.i.d. p.r.n. shakiness, tremor. Take a dose of lorazepam before going out to eat at a restaurant or other types of social activity. Patient advised to start PT for gait, balance, general strength and conditioning. Will follow-up upon review of above and patient to follow-up in clinic in 3-4 months or sooner prn. Orders: Orders UA CC w/rflx Micro + Cult Today K85.90 - Acute pancreatitis without necrosis or infection, unspecified, N39.0 - Urinary tract infection, site not specified Comprehensive Met. Panel Today K85.90 - Acute pancreatitis without necrosis or infection, unspecified Complete Blood Count Auto Diff Today K85.90 - Acute pancreatitis without necrosis or infection, unspecified Lipase Today K85.90 - Acute pancreatitis without necrosis or infection, unspecified Referrals Gastroenterology Referral K85.90 - Acute pancreatitis without necrosis or infection, unspecified Medications: Discontinued clonazepam Discontinued Reason: Doctor's Order 0.25 - 0.5 mg (1 - 2 x 0.25 mg) PO BID 30 days PRN 60 tabs 0RF seizure activity diazepam pt to hold Lorazepam Discontinued Reason: Doctor's Order 2 mg PO TID 14 days 42 tabs 0RF muscle spasm Coding Level of Care Code Est Pt Level 4 (03518) Complex EM visit Add On G2211 Diagnoses Pancreatitis K85.90 Fall W19.XXXA Generalized weakness R53.1 Hypoxic brain injury G93.1 Abnormal movements R25.9 Dysarthria R47.1 Spasticity R25.2 Epilepsy G40.909 Migraine without aura G43.009
== END 2024-07-09 10:54 | disposition home or self-care (01) ==
PROVIDERS: PCP Internal Medicine; Visit Provider Nurse Practitioner Family
DX: K85.90 Acute pancreatitis without necrosis or infection, unspecified (principal); R29.6 Repeated falls; R53.1 Weakness; G93.1 Anoxic brain damage, not elsewhere classified; R25.9 Unspecified abnormal involuntary movements; R47.1 Dysarthria and anarthria; R25.2 Cramp and spasm; G40.909 Epilepsy, unspecified, not intractable, without status epilepticus; G43.009 Migraine without aura, not intractable, without status migrainosus
CPT/HCPCS: 99214; G2211

== ENCOUNTER → 2024-07-09 09:31 | Outpatient (BNVA) | payer OTHER, SELFPAY | PROVIDERS: PCP Internal Medicine; Visit Provider Nurse Practitioner Family | DX: K85.90 Acute pancreatitis without necrosis or infection, unspecified (principal); R53.1 Weakness; R47.1 Dysarthria and anarthria; R25.2 Cramp and spasm; R25.9 Unspecified abnormal involuntary movements; R29.6 Repeated falls; G93.1 Anoxic brain damage, not elsewhere classified; G40.909 Epilepsy, unspecified, not intractable, without status epilepticus; G43.009 Migraine without aura, not intractable, without status migrainosus | CPT/HCPCS: 99212 ==

== ENCOUNTER 2025-01-27 11:27 | Outpatient (AMB) | payer OTHER, SELFPAY ==
[2025-01-27 11:31] VITALS: BP 126/60; PULSE 97; O2SAT 97; BMI 32.1
--- NOTE | 2025-01-27 11:31 | A.OFFVIS_ITS ---
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: No Accompanied by: Self / Same As Patient Allergies bee venom protein (honey bee) Allergy (Severe, Verified 07/09/24 09:43) Anaphylaxis clindamycin Allergy (Severe, Verified 01/27/25 11:34) Anaphylaxis Penicillins Allergy (Severe, Verified 07/09/24 09:43) Anaphylaxis Sulfa (Sulfonamide Antibiotics) Allergy (Severe, Verified 07/09/24 09:43) Hives mayonnaise Allergy (Intermediate, Verified 07/09/24 09:43) Hives aspirin Allergy (Mild, Verified 07/09/24 09:43) Unknown rofecoxib (From Vioxx) Allergy (Unknown, Verified 07/09/24 09:43) Unknown erythromycin Allergy (Severe, Uncoded 05/13/24 09:51) Anaphylaxis Medication List - Last Reconciled 01/27/25 by DELBERT Breen atorvastatin mg PO blood-glucose sensor ([employer] G6 Sensor device) As directed clopidogrel 75 mg PO DAILY gabapentin 300 mg PO DAILY galcanezumab-gnlm (Emgality Pen) 120 mg subcut ONCE 30 days [gammacore saphire 2 2-minute stimulations to 1 side of the neck TID, may repeat in 20 minutes if no effect] glipizide 5 mg PO BID indomethacin 25 mg PO BEDTIME lorazepam 1 mg PO TID PRN 30 days metformin ER 500 mg PO DAILY oxcarbazepine 300 mg PO BID 30 days sertraline 50 mg PO DAILY trazodone 100 mg PO BEDTIME ubrogepant (Ubrelvy) 50 - 100 mg (0.5 - 1 x 100 mg) PO ONCE PRN 30 days HPI Comments Details: History of Present Illness The patient is a 64-year-old female presenting with involuntary movement disorder, seizure symptoms, and migraine management. The patient has a history of hypoxic brain injury, which has resulted in dysarthria and spasticity. She reports experiencing involuntary movements and seizures, which are being managed with medication. In December, the patient experienced respiratory issues and was diagnosed with bronchitis, for which she was prescribed doxycycline. Her condition worsened, leading to a diagnosis of pneumonia, and she was treated with additional medications. Later in December, the patient developed blisters on her left maxillary face and was diagnosed with herpes zoster (shingles). She experienced an allergic reaction to clindamycin following a dental procedure, which resulted in tongue swelling and throat closure, requiring emergency treatment. The patient reports experiencing vertigo, which was thought to be related to her respiratory conditions. She also reports chest discomfort during exertion, p rompting a scheduled stress test. The patient has a history of pancreatitis, which has improved. she is now seeing [facility]. she is also following closely with her endocrinology, and states her hemoglobin A1c has improved- Per patient,last hemoglobin A1c was in the 7% range. She has been monitoring her diet to prevent further episodes. Headache Review - Headache Frequency: typically only has breakthrough migraine increased with heat and storms- at least 4-6 times month. - Reports increased frequency of headaches, exacerbated by heat and storms. - Headache alleviating factors: staying hydrated, neck fan - Uses Emgality for migraine management, but experiences issues with pharmacy supply. - She notes that she does not have Ubrelvy- not sure if she ever actually tried it before Social History - Employment: Works at [employer], reports exhaustion from work activities. - Family: - Exercise: Reports physical activity related to work. - Nutrition: Monitors diet due to diabetes and pancreatitis, consumes yogurt and water for lunch. Review of Systems - Respiratory: Reports dyspnea and respiratory issues, diagnosed with bronchitis and pneumonia. - Dermatological: Reports left facial shingles- has resolved. - Neurological: Reports increased headaches, vertigo, and involuntary movements. - Cardiovascular: Reports chest discomfort during exertion in the at night- and is scheduled to undergo medication induced stress test. - Gastrointestinal: Reports episodes of GI upset after eating, Medication History - Doxycycline: Prescribed for bronchitis, no adverse effects reported. - Clindamycin: Prescribed for shingles, caused allergic reaction with tongue swelling and throat closure. - Emgality: Used for migraine management, issues with pharmacy supply reported. - Gabapentin: Taken for restless leg syndrome, used at night. - Indomethacin: Taken for irritable bowel syndrome and restless leg syndrome, causes diarrhea if taken during the day. - Oxcarbazepine: Taken for seizure management, 300 mg twice daily. 07/09/2024, previous HPI: 64-yr-old female presents for urgent follow-up for increased ?spasticity and falls? in setting of seizure, involuntary movements, and migraine. Pt is accompanied by her . Pt reports that she has been having increased falls, however she clarifies this is one fall this past Sat. Patient had called the office with complaint of increased spasticity and shakiness. We trialed patient on diazepam 2 mg, which subsided the episode, but made her feel loopy so she only took 1 dose. Sense, she is still noticing increased shakiness and seizures, especially around 3am when she gets up to go to the bathroom or between 9am-2pm. The shakiness can be whole body, and can last between 5 minutes and an hour. The episode is harder to treat when it happens in public, such as when she is out at a restaurant. It usually responds to lorazepam, however can take longer for lorazepam to take effect now. is asking for an injectable version of lorazepam. She is is overall feeling more off-balance and weaker. Patient did undergo an interval brain MRI without contrast on 06/02/2024, which was unremarkable Patient also notes that she was admitted to [facility] on 06/25/24 d/t acute on chronic pancreatitis with clear trigger for acute exacerbation. Patient denies any alcohol intake Work-up was notable for: Elevated lipase 888H, on discharge decreased to 274 H. On 06/18/24, lipase was 26 NL Positive UA for WBC and bacteria- unfortunately I am not able to access culture report. Abd CT: No acute abnormality on noncontrast CT of the abdomen and pelvis. No imaging evidence for pancreatitis. No regional stranding or fluid collection. Recommend further correlation with pancreatic enzyme markers. There is similar atrophy of the pancreas with relative fullness at the level of the pancreatic head when compared to the CT of 06/05/2024 and 12/04/2021, which could relate to relative sparing. Pt states she was d/c'd home w/o home care services, though d/c paperwork indicates these were ordered. Since being home, pt notes she still has a poor appetite. She is feeling overall more week. [facility] Discharge Labs WBC 9.1 k/mm3 ()? 06/26/2024 06:05 RBC 3.96 m/mm3 (Low)? 11/21/202 4 06:05 Hgb 11.1 Gm/dL (Low)? 06/26/2024 06:05 Hct 34.0 % (Low)? 06:05 MCV 85.9 femtoliters ()? 06/26/2024 06:05 MCH 28.0 pg ()? 2023 06:05 MCHC 32.6 Gm/dL (Low)? 06/26/2024 06:05 Platelet Count 226 k/mm3 ()? 06/26/2024 06:05 RDW-SD 41.6 femtoliters ()? 06/26/2024 06:05 MPV 9.2 femtoliters (Low)? 06/26/2024 06:05 Nucleated RBC (Automated) 0.0 #/100 WBC'S ()? 06/26/2024 06:05 Abs. NRBC 0.0 k/mm3 ()? 06/26/2024 06:05 Abs. Neut 8.2 k/mm3 (High)? 06/25/2024 08:32 Abs. Lymph 1.5 k/mm3 ()? 08:32 Abs. [place] 0.6 k/mm3 ()? 06/25/2024 08:32 Abs. Eo 0.1 k/mm3 ()? 08:32 Abs. Baso 0.0 k/mm3 ()? 06/25/2024 08:32 Neut % 78.0 % (High)? 06/25/20 08:32 Lymph % 14.3 % (Low)? 06/25/2024 08:32 [place] % 6.0 % ()? 06/25/20 08:32 Eos % 1.0 % ()? 06/25/2024 08:32 Baso % 0.2 % ()? 06/25/20 08:32 Imm Gran 0.5 % ()? 06/25/2024 08:32 Abs. Imm Gran 0.1 k/mm3 ()? 08/25/2023 08:32 High Sensitivity Troponin (HSTnT) <6 ng/L ()? 06/25/2024 08:32 ? ? ? Sodium 136 mmol/L ()? 06/26/2024 06:05 Potassium 3.9 mmol/L ()? 06/26 06:05 Chloride 108 mmol/L (High)? 06/26/2024 06:05 Bicarbonate Level 25 mmol/L ()? 06/26/2024 06:05 Anion Gap 3 (Low)? 06/26/2024 06:05 Glucose Level 164 mg/dL (High)? 06/25/2024 08:32 Glucose, POC 96 mg/dL ()? 06/27/2024 07:04 BUN 15 mg/dL ()? 06/26/2024 06:05 Creatinine-Blood 0.65 mg/dL ()? 06/26/2024 06:05 Estimated GFR Creatinin e 99 ML/MIN/1.73 M2 ()? 06/26/2024 06:05 Calcium 9.0 mg/dL ()? 06/25/2024 08:32 Protein, Total 7.1 Gm/dL ()? 06/25/2024 08:32 Albumin 4.0 Gm/dL ()? 06/25/2024 08:32 AG Ratio 1.3 ()? 2023 08:32 Alkaline Phosphatase 164 units/L (High)? 06/25/2024 08:32 Lipase 274 units/L (High)? 06/26/2024 06:05 AST (SGOT) 15 units/L ()? 06/25/2024 08:32 ALT (SGPT) 24 units/L ()? 06/07 08:32 Bilirubin, Total 0.3 mg/dL ()? 06/25/2024 08:32 Lactate 1.3 mmol/L ()? 06/25/2024 08:32 UA/URINALYSIS Appear/Color, Urine YELLOW ()? 06/25/2024 09:35 Clarity SL.CLOUDY (Abnormal)? 06/25/2024 09:35 Specific [place], Urine 1.025 ()? 06/25/2024 09:35 pH, Urine 5.5 ()? 06/25/2024 09:35 Albumin, Urine TRACE (Abnormal)? 06/25/2024 09:35 Glucose, Urine NEGATIVE (N)? 06/25/2024 09:35 Ketones, Urine NEGATIVE (N)? 06/25/2024 09:35 Bilirubin, Urine NEGATIVE (N)? 06/25/2024 09:35 Hemoglobin, Urine NEGATIVE (N)? 06/25/2024 09:35 Nitrite, Urine NEGATIVE (N)? 06/25/2024 09:35 Leukocyte, Urine 1+ (Abnormal)? 06/25/2024 09:35 Urobilinogen NORMAL mg/ dL (N)? 06/25/2024 09:35 WBC's, Urine 12 /HPF (High)? 06/25/2024 09:35 RBC's, Urine 1 /HPF ()? 09:35 Bacteria HEAVY HPF (Abnormal)? 06/25/2024 09:35 Squamous Epith 4 /HPF ()? 06/25/2024 09:35 Mucus SLIGHT /LPF ()? 06/25/2024 09:35 Budding Yeast HEAVY /HPF ()? 06/25/20 09:35 Hold Urine Culture Testing available 48 hours from time of collection. ()? 06/25/2024 09:35 ? ? ? [facility] Medical History (Updated 01/27/25 @ 12:01 by DELBERT Breen) UTI (urinary tract infection) Bunion, left foot Torn medial meniscus FH: cholecystectomy Hypoxic brain injury Obstructive sleep apnea Surgical History History of reverse total replacement of right shoulder joint H/O: hysterectomy History of dilation and curettage History of ankle surgery Social History Household Members: Spouse Alcohol intake: former Patient Tobacco Use Status: Former Tobacco user service: Yes Current occupational status: employed, retired and disabled Current occupation: [employer] Vital Signs: Last Vital Signs Pulse 97 01/27/25 11:31 BP 126/60 01/27/25 11:31 Pulse Ox 97 01/27/25 11:31 Oxygen Delivery Method Room Air 01/27/25 11:31 BMI result Body Mass Index 32.1 Const General: cooperative and no acute distress Orientation/consciousness: patient oriented x3 Resp Effort & Inspection: normal respiratory effort and able to speak in complete sentences Neuro Other: Dysconjugate gaze. Mild dysarthria Left facial hemispasm- Slow to stand, gait steady, slightly wide-based with short steps. No tremor. General: patient oriented x3 Cognition (Neuro): normal cognition Psych Appearance: grossly normal Mental Status: mental status grossly normal Affect: normal affect Attitude: cooperative Assessment & Plan Assessment & Plan (1) Migraine without aura: Code(s): G43.009 - Migraine without aura, not intractable, without status migrainosus Category: Medical Qualifiers: Intractability: not intractable Status migrainosus presence: without status migrainosus Qualified Code(s): G43.009 - Migraine without aura, not intractable, without status migrainosus (2) Hypoxic brain injury: Comment: In 1977 Code(s): G93.1 - Anoxic brain damage, not elsewhere classified Category: Medical (3) Abnormal movements: Code(s): R25.9 - Unspecified abnormal involuntary movements Category: Medical (4) Epilepsy: Code(s): G40.909 - Epilepsy, unspecified, not intractable, without status epilepticus Category: Medical Qualifiers: Epilepsy type: unspecified Intractability: not intractable Status epilepticus: without status epilepticus Qualified Code(s): G40.909 - Epilepsy, unspecified, not intractable, without status epilepticus (5) Dysarthria: Code(s): R47.1 - Dysarthria and anarthria Category: Medical (6) Spasticity: Code(s): R25.2 - Cramp and spasm Category: Medical Plan Discussion Notes During the visit, we discussed the patient's recent health issues, including the management of her migraines with Emgality and the challenges faced with pharmacy supply. We also discussed optimizing patient's acute migraine treatment regimen, such as with starting as needed Ubrelvy. the discussion she is not a candidate to trial sumatriptan due to history of stroke and symptomatic seizure activity. We reviewed patient's spasticity and seizures symptoms, which remain stable with Trileptal in lorazepam, as well as nonpharmacological interventions, such as hydration using a sun shade and fan at work. Patient was informed and verbally consented to the use of an ambient scribe for clinic note documentation during this visit. Plan and migraines Patient Instructions General: Follow-up with GI, Cardiology, Endocrinology as scheduled. For seizures/spasticity/abnormal movements: Continue Trileptal dose from 300mg bid. Reviewed November 2024 labs from [facility] within normal limits Continue Lorazepam 1mg daily at 09:00, may use b.i.d. p.r.n. shakiness, tremor For episodic migraines: * For migraine prevention: * Continue workplace accommodations including using covered umbrella, fan, access to hydration. [place] from work during thunder storms. * Continue Emgality 120 mg sc q month for migraine prevention.? Consider using a mail-order specialty pharmacy or [facility] if patient continues to have difficulty filling at local pharmacy. * Previous trials: Amitriptyline and Topamax- ineffective and not tolerated. * Treatment contraindications: All beta-blockers or antihypertensive agents due to risk for hypotension. * For acute migraine treatment: * Patient advised to start Ubrelvy 100mg prn, MR in 2 hrs (max 200mg per day). May adjunct with Tylenol 650-1000 mg every 4-6 hours as needed. * Continue GammaCore vagal nerve stimulator for both episodic migraine preventive and acute treatment. * Treatment contraindications: All triptans and DHE due to history of stroke and symptomatic generalized tonic-clonic seizure disorder. Pt to follow-up in 3-6 months or sooner prn. Medications: Refilled ubrogepant (Ubrelvy) take at onset of migraine, may repeat in 2hrs (may take w/ Tylenol) 50 - 100 mg (0.5 - 1 x 100 mg) PO ONCE PRN 16 tabs 6RF migraine headache 30 days galcanezumab-gnlm (Emgality Pen) 120 mg subcut ONCE 1 mL 6RF 30 days Coding Level of Care Code Est Pt Level 4 (68218) Diagnoses Migraine without aura and without status migrainosus, not intractable G43.009 Intractability: not intractable Status migrainosus presence: without status migrainosus Hypoxic brain injury G93.1 Abnormal movements R25.9 Nonintractable epilepsy without status epilepticus, unspecified epilepsy type G40.909 Epilepsy type: unspecified Intractability: not intractable Status epilepticus: without status epilepticus Dysarthria R47.1 Spasticity R25.2
--- OUTSIDE RECORDS SUMMARY | 2025-01-27 13:06 | XMS_ITS | Data Portability ---
Author Organization [place] - [facility]geons [facility], [facility] Address [address] [place] [address] Care Team Providers Care Commission Broker Name Role Phone [facility] Primary Care Provi shon Assessment No assessment recorded. Plan of Treatment Reminders Order Date Submit Date Provider Last Modified By Organization Details Last Modified Time Details Appointments RECHEC K 15 2024 02:45P M Ethan Broussard PA-C Not available Not available Not available Lab None record ed. Referral physic al therap ist referr al - VMO Streng thenin g, Hip Abduct or, Glute Med Streng thenin g, Quad & Hamstr ing Stretc genetIssac randhawa Mobili zation , [place] ell Taping at your discre tion. 2024 025 [email or web address] [facility] (Saul Zambrano), [address] [place], [address], 10/31/2024 13:28:24 Procedures None record ed. Surgeries None record ed. Imaging None record ed. Medication Orders None record ed. Patient TargetsNo targets recorded. Patient InstructionsNo instructions recorded. Reason for Referral Physical Therapist Referral for Chondromalacia of left knee VMO Strengthening, Hip Abductor, Glute Med Strengthening, Quad & Hamstring Stretching, Patella Mobilization, Sim Taping at your discretion. Referring Physician: Ethan Broussard, Orthopedic Surgery, Encounter Date: 08/13/2024 Results Created Date Observation Date Name Description Value Unit Range Abnormal Flag Note LastModifiedBy Organization Detail LastModifiedTime 01/30/20 24 01/30/2024 XR, knee, 4 or more view http:/ [email or web address] ?Encry pted=s hAaTro YD8dLq bEUv6g %2BXZw aYqtaq 0bqfl% 2Fg9IQ a4ajBk vP9nXo QUaueC m3YtLR FvZlgJ JJ8mAn HZtai3 7s5517 AC0KuY 3WEVKP eUC8mr 84%3D INTERFACE [facility] [address], [place], [address], 01/30/2024 09:45:49 01/30/20 24 01/30/2024 XR, knee, 4 or more view http:/ [email or web address] ?Encry pted=s hAaTro YD8dLq bEUv6g %2BXZw aYqtaq 0bqfl% 2Fg9IQ a4ajBk vP9nXo QUaueC m3YtLR FvZlgJ JJ8mAn HZtai3 5d2591 AC0KuY 3WEVKP eUC8mr 84%3D INTERFACE [facility] [address], [place], [address], 01/30/2024 09:45:51 02/11/20 24 02/09/2024 MRI, knee, w/o contr ast [facility] Access ion Number : [id number] Doris millard Name: [place] millard, [facility] Record Number : [id number] Date of : 1959 Date of Exam: 2023 Referr ing Physic myriam: [facility] [address] [place] [address] Exam: MR Knee (C-) CPT 20209 - Left Room Descri ption: [place] GE Pion 3T Histor y: Pain in the left knee, questi on medial menisc al tear. The patien t report s modera te to severe consta nt left knee pain since slippi ng and fallin g on 024. Histor y of menisc al surger y 12 years ago. Techni que: MRI of the left knee was perfor med withou t intrav enous contra st. Compar krishan: None. Findin gs: Joint effusi on: No joint effusi on is presen t. There is postop erativ e change in Hoffa' s fat pad. Menisc i: There is a diminu tive appear ance of the medial menisc al body with free margin trunca tion. Horizo ntal signal is seen in the remain shon of the body extend ing into the roller mill operator ior third where there is also signal extend ing to the superi or articu lar surfac e. There is a horizo ntal tear along the superi or articu lar surfac e in the anteri or third of the latera l menisc us. Tendon s and ligame nts: The ACL and PCL are intact . The collat eral ligame nts are unrema rkable . The ilioti bial band is unrema rkable . There is mild thicke patsy and intras ubstan ce interm ediate T2 signal in the distal aspect of the patell ar tendon , sugges ting tendin opathy . Articu lar cartil age and bone: There is irregu lar chondr al thinni ng in the weight bearin g portio n of the medial compar tment, greate r on the tibial surfac e where chondr al thinni ng extend s near full-t hickne ss. There is chondr al thinni ng in the roller mill operator ior aspect of the latera l femora l condyl e. Mild irregu lar chondr al thinni ng is seen in the mid portio n of the patell a. Impres neri: 1. Comple x tear of the roller mill operator ior third of the medial menisc us with diminu tive appear ance of the body which may reflec t sequel a of the prior report ed menisc ectomy . 2. Horizo ntal tear in the anteri or third of the latera l menisc us. 3. Tricom partme ntal degene rative change with chondr al loss greate st in the medial compar tment. 4. Distal patell ar tendin opathy . Electr onical ly Signed By: Nayeli [email or web address] [facility] ([facility] [address], [place], [address], 02/13/2024 08:13:22 04/04/20 24 01/15/2020 imagi ng/di agnos tic resul t No observ ation record ed. [email or web address] Not Available 03/08 05:06:32 04/04/20 24 03/05/2020 imagi ng/di agnos tic resul t No observ ation record ed. [email or web address] Not Available 03/08 05:06:37 04/04/20 24 03/05/2020 imagi ng/di agnos tic resul t No observ ation record ed. [email or web address] Not Available 03/08 05:06:38 04/04/20 24 04/09/2022 imagi ng/di agnos tic resul t No observ ation record ed. [email or web address] Not Available 03/08 05:08:10 04/04/20 24 04/09/2022 imagi ng/di agnos tic resul t No observ ation record ed. [email or web address] Not Available 03/08 05:08:13 04/04/20 24 09/11/2022 imagi ng/di agnos tic resul t No observ ation record ed. [email or web address] Not Available 03/08 05:08:26 04/28/20 24 04/25/2024 , lower extre mity No observ ation record ed. BARCODE Not Available 2023 13:52:39 Result Notes None recorded. Problems Name Problem SNOMED Code Status Onset Date Resolution Date Notes Provider Name and Address Organization Details Recorded Time No complaint s 406694933 Active Status: 'I'; Not Available [facility] 4 09:16:37 Acute tear of medial meniscus of left knee 802989026821 70860 Active 2023 Tai Tee MD [address], [place], [address] , [facility] 4 08:25:55 Acute tear of meniscus of left knee 476482841509 15620 Active 2023 STEPHAN TUCKERBROMICHELLE woodson [facility] 4 09:11:34 Acute tear of lateral meniscus of left knee 794122175373 70082 Active 2023 STEPHAN woodson [facility] 4 09:11:34 Osteoarth ritis of knee 130190049 Active 2023 Ethan Broussard PA-C [address], [place], [address] , [facility] 4 12:18:00 Chondroma lacia of left knee 076185018734 Active 2024 Ethan Broussard PA-C [address], [place], [address] , [facility] 5 11:34:07 Sprain of tibiofibu lar ligament of left ankle 448225822497 52467 Active 2016 Problem Code: S93.432A ; Problem Code Type: ICD-10; Status: 'A'; Not Available [facility] 4 11:12:29 Closed trimalleo lar fracture 2954382 Active 2016 Problem Code: S82.852D ; Problem Code Type: ICD-10; Status: 'A'; Not Available [facility] 4 11:12:29 Problem Notes None recorded. Procedures Surgical History Date Name Laterality Status Provider Name and Address Organization Details Recorded Time 06/21/2024 Sports Knee 4&1 completed Ethan Broussard PA-C [address], [place], [address], [facility] 06/21/2024 06:07:49 Imaging Results None recorded. Procedure Notes None recorded. Medical Equipment None Reported. Allergies Allergen ID Allergen Name Allergen Category Reaction Reaction Severity Criticality Documentation Date Start Date Code Code System Note Provider Name and Address Organization Details Recorded Time 33293 Substance with sulfonami de structure and antibacte rial mechanism of action (substanc e) medicatio n Not available Not available Not available 10/08/20232002 16482 8003 SNOMED Aller gyRea ction : 'Skin React ion, Nause a/Vom iting /Diar jose, Shock /Unco nscio usnes s'; Not Available [facility] 4 13:27:08 68984 erythromy zoe medicatio n Not available Not available Not available 10/08/20232002 4053 RxNorm Aller gyRea ction : 'Skin React ion, Nause a/Vom iting /Diar jose, Shock /Unco nscio usnes s, Anemi a/Blo od Disor shon, Asthm a/Jana rt of Breat h'; Not Available [facility] 4 13:27:08 34253 aspirin medicatio n Not available Not available Not available 10/08/20232002 1191 RxNorm Aller gyRea ction : 'Skin React ion, Nause a/Vom iting /Diar jose' ; Not Available [facility] 4 13:27:08 33932 egg extract food,medi cation Not available Not available Not available 10/08/20232002 56821 15 RxNorm Aller gyRea ction : 'Skin React ion'; Not Available [facility] 4 13:27:08 54561 [employer] food Not available Not available Not available 10/08/20232012 04863 UNK Not Available [facility] 4 13:27:08 Medications Name Sig Start Date Stop Date Status Note LastModified by Organization Details LastModified Time clindamycin HCl 300 mg capsule TAKE 1 CAPSULE BY MOUTH 4 TIMES A DAY UNTIL FINISHED active Not Available Not Available No t Available cefpodoxime 200 mg tablet TAKE 1 TABLET BY MOUTH EVERY 12 HOURS FOR 7 DAYS active Not Available Not Available No t Available Glucagon Emergency Kit 1 mg solution for injection active Not Available Not Available No t Available benzonatate 200 mg capsule TAKE 1 CAPSULE BY MOUTH THREE TIMES A DAY FOR 10 DAYS active Not Available Not Available No t Available phenazopyri dine 200 mg tablet TAKE 1 TABLET BY MOUTH THREE TIMES A DAY AFTER MEALS NEEDED FOR URINARY DISCOMFOR T active Not Available Not Available No t Available ondansetron HCl 4 mg tablet TAKE 1 TABLET BY MOUTH EVERY 8 HOURS NEEDED FOR NAUSEA AND VOMITING active Not Available Not Available No t Available oxcarbazepi ne 300 mg tablet active Not Available Not Available Not Available ciprofloxac in 500 mg tablet TAKE 1 TABLET BY MOUTH TWICE A DAY active Not Available Not Available No t Available peg-electro lyte solution 420 gram oral solution DRINK UNTIL 4 LITERS ARE CONSUMED OR THE RECTAL EFFLUENT IS CLEAR 01/29 completed Not Available Not Available Not Available tramadol 50 mg tablet TAKE 1 TABLET BY MOUTH 3 TIMES A DAY,X5 DAYS NEEDED FOR PAIN active Not Available Not Available No t Available oxycodone-a cetaminophe n 5 mg-325 mg tablet TAKE 1 TABLET BY MOUTH EVERY 6 HOURS NEEDED 01/29 completed Not Available Not Available Not Available tamsulosin 0.4 mg capsule TAKE 1 CAPSULE BY MOUTH EVERY DAY active Not Available Not Available No t Available trazodone 100 mg tablet active Not Available Not Available Not Available diazepam 2 mg tablet TAKE 1 TABLET BY MOUTH THREE TIMES A DAY NEEDED FOR MUSCLE SPASM X14 DASY HOLD LORAZEPAM active Not Available Not Available No t Available cephalexin 500 mg capsule TAKE 1 CAPSULE BY MOUTH TWICE A DAY active Not Available Not Available No t Available pseudoephed rine-guaife nesin ER 80-700 mg tablet,exte nded release Percocet 5-325MG Tablet 1 every 4 - 6 hours as needed 2007 active Statu s: 'Curr ent'; Not Available Not Available Not Available gabapentin 300 mg capsule active Not Available Not Available Not Available lisinopril 5 mg tablet active Not Available Not Available Not Available lorazepam 1 mg tablet TAKE 1 TABLET BY MOUTH THREE TIMES A DAY NEEDED FOR SWIZURE/M OVEMENTS active Not Available Not Available No t Available albuterol sulfate HFA 90 mcg/actuati on aerosol inhaler INHALE 2 PUFFS EVERY 4 HOURS active Not Available Not Available No t Available morphine 15 mg immediate release tablet TAKE 1 TABLET BY MOUTH EVERY 6 HOURS NEEDED FOR PAIN FOR 3 DAYS active Not Available Not Available No t Available ondansetron 4 mg disintegrat ing tablet DISSOLVE 1 TABLET BY MOUTH EVERY 6 HOURS NEEDED FOR NAUSEA active Not Available Not Available No t Available sertraline 50 mg tablet active Not Available Not Available Not Available glipizide 5 mg tablet active Not Available Not Available No t Available naproxen 500 mg tablet TAKE 1 TABLET BY MOUTH TWICE A DAY 2024 active Not Available Not Available Not Avai lable oxycodone 5 mg tablet TAKE 2 TABLETS BY MOUTH EVERY 6 HOURS NEEDED FOR PAIN active Not Available Not Available No t Available clonazepam 0.25 mg disintegrat ing tablet DISSOLVE 1 TO 2 TABLETS ON THE TONGUE TWICE A DAY NEEDED FOR SEIZURE ACTIVITY FOR 30 DAYS active Not Available Not Available No t Available nitrofurant oin monohydrate /macrocryst als 100 mg capsule TAKE 1 CAPSULE BY MOUTH TWICE A DAY FOR 4 DAYS active Not Available Not Available No t Available sodium fluoride 1.1 % dental cream active Not Available Not Available Not Available Tegretol TEGretol 200MG Tablet 07/28 completed Statu s: 'Disc ontin ued'; Not Available Not Available Not Available Plavix Plavix 300MG Tablet 09/23 completed Statu s: 'Disc ontin ued'; Not Available Not Available Not Available levetiracet am 2qam and 3 qhs 2003 active Statu s: 'Curr ent'; Not Available Not Available Not Available oxycodone HCl-oxycodo ne-ASA as directed 1-2 TABLETS EVERY 4 HOURS PRN PAIN 2022 active Statu s: 'Curr ent'; Not Available Not Available Not Available TRUEplus Glucose 3.75 gram chewable tablet active Not Available Not Available Not Available Emgality Pen 120 mg/mL subcutaneou s pen injector INJECT 120 MG SUBCUTANE OUSLY ONCE FOR 30 DAYS active Not Available Not Available No t Available Wixela Inhub 250 mcg-50 mcg/dose powder for inhalation active Not Available Not Available N ot Available Vitals Date Recorded Body height Body mass index (BMI) Body weight Provider Name and Address Organization Details Last Updated DateTime 08/13/2024 162.56 cm 30.4 kg/m2 12126.85 g Ethan Broussard PA-C [address] [place] [address] [address], [place], [address], [place] [facility] 08/13/2024 11:11:43 Date Recorded Body height Body mass index (BMI) Body weight Heart rate Body temperature Body mass index (BMI) Respiratory rate Systolic blood pressure Diastolic blood pressure Provider Name and Address Organization Details Last Updated DateTime 162.56 cm 30.4 kg/m2 09509.8 5 g 58 /min 98.7 [degF] 30.4 kg/m2 18 /min 136 mm[Hg] 82 mm[Hg] JOHNJOSE TUCKERBROOK [facility] 08:31:12 Date Recorded Body height Body mass index (BMI) Body weight Body temperature Provider Name and Address Organization Details Last Updated DateTime 04/28/2024 162.56 cm 30.4 kg/m2 76379.85 g 98 [degF] Ethan Broussard PA-C [address], [place], [address] , [facility] 04/28/2024 13:16:14 Date Recorded Body height Body mass index (BMI) Body weight Provider Name and Address Organization Details Last Updated DateTime 05/22/2024 162.56 cm 30.4 kg/m2 54810.85 g Ethan Broussard PA-C [address], [place], [address], [facility] 05/22/2024 14:46:04 Date Recorded Body height Body mass index (BMI) Body weight Provider Name and Address Organization Details Last Updated DateTime 06/21/2024 162.56 cm 30.4 kg/m2 76163.85 g Ethan Broussard PA-C [address], [place], [address], [facility] 06/21/2024 09:34:29 Social History None recorded. Functional Status None recorded. Mental Status None recorded. Family History Nothing Reported. Medical History Condition Response Allergies/Hayfever N Coronary Artery Disease N Breathing or lung disorders N Anxiety/Depression N Emphysema N Nerve Disorders N Thyroid Problems N COPD N Pacemaker N Anemia N Kidney/Bladder Problems Y Vascular Disease N Heart Trouble N Heart Attack ([place]) N Gastrointestinal Disease N Cholesterol N Diabetes Y Autoimmune disease N Bleeding Disorder N Orthotics N Arthritis N Seizures/Epilepsy Y Blood Clot N AIDS/HIV N Congestive Heart Failure (CHF) N Acid Reflux (GERD) Y Cancer N Stroke Y Asthma N Circulation Problems N Peripheral Vascular Disease N Sleep Apnea N Hepatitis N Heart Disease N Rheumatoid Arthritis N Arrhythmia N Pulmonary Embolism N Headaches Y Fibromyalgia N Hypertension N Osteoporosis N Gynecological HistoryNo gynecological history recorded. Obstetrics History GPAL:G 0 P 0 0 0 0 Past Encounters Encounter ID Performer Location Encounter Start Date Encounter Closed Date Diagnosis/Indication Diagnosis SNOMED-CT Code Diagnosis ICD10 Code Diagnosis Note [id number] Eze Murphy PA-C [facility] [address] [place] [place] [address] 01/30/2024 08:57:57 01/30/2024 10:37:26 Pain of left knee joint 2146806565 19119 M25.562 Acute tear of medial meniscus of left knee 0574628912 3934287 S83.242A [id number] Tai Tee MD [facility] [address] [place] [place] [address] 02/21/2024 07:46:08 03/21/2024 07:05:12 Acute tear of medial meniscus of left knee 2350190441 4172616 S83.242D [id number] REFUGIO Peñaloza Clinical [facility]AVIER LAZCANO [facility] [place] [place] [address] 04/28/2024 12:52:14 05/08/2024 08:53:30 Osteoarthritis of knee 956674426 M17.9 [id number] Ethan Broussard PA-C [facility] [address] [place] [place] [address] 05/22/2024 14:36:23 06/10/2024 14:22:28 Osteoarthritis of knee 412375006 M17.9 [id number] Ethan Broussard PA-C [facility] [address] [place] [place] [address] 06/21/2024 09:17:29 07/10/2024 09:39:01 Osteoarthritis of knee 854945396 M17.9 [id number] Ethan Broussard PA-C [facility] [address] [place] [address] 08/13/2024 10:45:26 08/27/2024 15:50:46 Chondromalacia of left knee 8256344303 7602047 M94.262 Health Concerns Section Related Observation LastModified by Organization Detai ls LastModified Time None Recorded Concern Status LastModified by Organization Details LastModified Time None Recorded Advance Directives Directive None Recorded Payers Insurance Date Sequence Insurance Name Policy Number Policy Machado Covered Member ID Machado Member ID Guarantor Name 08/27/2024 [facility] Tatum Stubbs [id number] Tatum Stubbs Notes Date Note Type Note Provider Name and Address Organization Details Recorded Time 4 text/htm l HPI: Patient is seen today for follow-up evaluation of their left knee MRI. They have been modifying their activity and working on range of motion. Patient reports intermittent sharp mechanical pain still in the knee. Patient complains of occasional moderate/severe amounts of pain with ADL and frustrated by his lack of improvement wants to discuss possibility surgery at this time.ast history left knee arthroscopy for partial meniscectomy greater than 10 years ago. Recent exacerbation left knee associated with a Fall at work where she attempted to utilize the grab bar after slipping on a wet floor in surface immediate onset of left knee pain and swelling whhich now presents. MRI findings Independently reviewed with the patient today 1. Complex tear of the posterior third of the medial meniscus withdiminutive appearance of the body which may reflect sequela of theprior reported meniscectomy.2. Horizontal tear in the anterior third of the lateral meniscus.3. Tricompartmental degenerative change with chondral loss greatest inthe medial compartment. Past family, medical, social history and review of systems has been reviewed, updated and signed by me and is located in the patient s chart. PHYSICAL EXAMINATION: The patient is well appearing and in no apparent distress. Alert and oriented x3. Gait is symmetric. EXAM:HEENT is unremarkableHeart regular rate and rhythm without murmurs rubs gallopsAbdomen soft nontender nondistended positive bowel sounds.Lungs are clear bilaterally without rales rhonchi or wheezesPeripheral, vascular, lymphatic examination, skin, neurological, coordination, reflexes, sensation are within normal limits. right knee ROM is full, stability intact both anterior, posterior, and varus/valgus stress at both 0 and 30 degrees of flexion. Severe Medial meniscal tenderness. Exquisitely Positive Jon's maneuver. 1+ patellofemoral crepitus,Trace effusion, 5/5 strength. No Rae cyst left knee ROM is full, stability intact both anterior, posterior, and varus/valgus stress at both 0 and 30 degrees of flexion. No meniscal tenderness. Negative Jon's maneuver. No crepitus,no effusion, 5/5 strength. 4 view weightbearing radiographs obtained at her last office visit 01/30/2024 revealed well-maintained tibiofemoral compartment spaces bilaterally without significant osteophyte formation. Mild PF arthropathy which is symmetric bilaterally. IMPRESSION: Medial meniscus tear right knee PLAN: Patient remains frustrated by his lack of improvement like to proceed with a left knee arthroscopy. Risks benefits expectation short-term goals long-term goals all of which were discussed today. I do not find space physical exam patient prevent patient from going for surgery this time. Expectations length of time of recovery and time to miss from work were discussed in detail today. The patient like proceed as outlined at this time. Today we had the opportunity to review with the patient the pathoanatomy. Discussed the surgical intervention proposed and its nonoperative alternatives. Reviewed today the risks, benefits, the expectations both of the surgical procedure and again its nonoperative alternatives. After reviewing appropriate treatment options patient would like to move towards scheduling. Informed consent was obtained in the office today. We will work towards scheduling hopefully within the next 30 to 90 days. Patient requires pre-operative nerve blockade with ultrasound guidance to aid with post-operative pain control and to accelerate appropriate safe discharge to home.Today we had the opportunity to review with the patient the pathoanatomy. Discussed the surgical intervention proposed and its nonoperative alternatives. Reviewed today the risks, benefits, the expectations both of the surgical procedure and again its nonoperative alternatives. After reviewing appropriate treatment options patient would like to move towards scheduling. Informed consent was obtained in the office today. We will work towards scheduling hopefully within the next 30 days. Tia Tee MD [address] [facility] [address], [place], [address], [facility] 02/21/2024 08:26:14 4 text/htm l I am seeing the patient today under the supervision of Dr. Tadeo who was available but who did not see the patient.HISTORY OF PRESENT ILLNESSThe patient returns for initial postop evaluation status post left knee Arthroscopy. Patient does report increased symptoms and lower leg pain, she was evaluated at [facility] ultrasound was performed which was negative for DVT. Operative findings: Tear involving both medial meniscus, focal grade 3 changes involving tibial plateau and medial femoral condyle, well preserved Lateral Compartment.PHYSICAL FINDINGS The patient ambulates with crutches, mild antalgic gait, 1+ effusion. Incision is healing well. Sutures Removed, steri's applied. No sign of infection or DVT. ASSESSMENTStatus post left knee ArthroscopyPLANDiscussed plans for slow return to normal activities over 4-6 weeks. Continue modifications activities utilizing ice, oral NSAIDs as clinically indicated. Benefits of home physical therapy described and outlined in detail for the patient today. Recommendation is made for follow-up care in 6 weeks' time if patient remains symptomatic. Ethan Broussard PA-C [address], [place], [address], [facility] 04/28/2024 13:29:23 4 text/htm l I am seeing the patient today under the supervision of Dr. Tee who was available but who did not see the patient.HISTORY OF PRESENT ILLNESSThe patient returns for evaluation with recurrent complaints of intermittent pain still in the operative leg. Operative findings: Tear involving both medial meniscus, focal grade 3 changes involving tibial plateau and medial femoral condyle, well preserved Lateral Compartment.PHYSICAL FINDINGS The patient ambulates with crutches, mild antalgic gait, 1+ effusion. Incision is healing well. Sutures Removed, steri's applied. No sign of infection or DVT. ASSESSMENTStatus post left knee ArthroscopyPLAN: Patient is doing much better, recommend slow return to normal activities. Ethan Broussard PA-C [address], [place], [address], [facility] 05/22/2024 15:03:22 4 text/htm l I am seeing the patient today under the supervision of Dr. Tee who was available but who did not see the patient.HISTORY OF PRESENT ILLNESSThe patient returns for evaluation with recurrent complaints of intermittent pain still in the operative leg. Operative findings: Tear involving both medial meniscus, focal grade 3 changes involving tibial plateau and medial femoral condyle, well preserved Lateral Compartment.Clinical Update: Patient returns today for follow-up evaluation reporting ongoing persistent discomfort involving her left knee. PHYSICAL FINDINGS The patient ambulates with crutches, mild antalgic gait, 1+ effusion. Incision is healing well. Sutures Removed, steri's applied. No sign of infection or DVT. ASSESSMENTStatus post left knee ArthroscopyPLAN: Treatment options discussed ultimately decided to go forward with corticosteroid injection to address and manage some of her grade 3 changes involving the tibial plateau involving the medial compartment. Ethan Broussard PA-C [address], [place], [address], [facility] 06/21/2024 09:52:26 5 text/htm l I am seeing the patient today under the supervision of Dr. Arzola who was available but who did not see the patient. Surgery: Left knee arthroscopy 04/18/2024 Dr. Tee Interval History: Tatum returns today for follow-up evaluation with persistent anterior knee pain. Her brace that she has is problematic she feels like her kneecap is unstable feels episodes of giving way and buckling she did not do physical therapy postoperatively. Past family, medical, social history and review of systems have been reviewed and updated on the medical history sheet saved to the patient's chart. A 12-point review of systems is negative x12 except as noted above and/or on the medical history sheet. Examination: Left knee exam shows mild muscle atrophy in the quadricep, patella crepitance, joint spaces are nontender, no [id number] laxity no erythema no redness or warmth. Impression: 4-month status post left knee arthroscopy Plan: Recommendations made to initiate physical therapy also think she would benefit from a patella stabilizing brace. She understands she had some mild grade 3 changes on the trochlea and grade 2 changes in the medial compartment and its likely a problem. She has received a previous corticosteroid injection with only marginal improvement. Potential role of viscosupplementation in future discussed continue PT and bracing follow-up in our office as symptoms require. [employer] speech recognition math teacher software was used to create portions of this document. An attempt at proofreading has been made to minimize errors. Please call for corrections. Ethan Broussard PA-C [address], [place], [address], [facility] 08/13/2024 12:01:31 OBGyn Episode No OBEpisode recorded.
== END 2025-01-27 12:35 | disposition home or self-care (01) ==
LOC: HO.HSMS 11:27
PROVIDERS: PCP Internal Medicine; Visit Provider Nurse Practitioner Family
DX: G43.009 Migraine without aura, not intractable, without status migrainosus (principal); G93.1 Anoxic brain damage, not elsewhere classified; R25.9 Unspecified abnormal involuntary movements; G40.909 Epilepsy, unspecified, not intractable, without status epilepticus; R47.1 Dysarthria and anarthria; R25.2 Cramp and spasm
CPT/HCPCS: 99214

== ENCOUNTER → 2025-01-27 11:27 | Outpatient (BNVA) | payer OTHER, SELFPAY | PROVIDERS: PCP Internal Medicine; Visit Provider Nurse Practitioner Family | DX: G43.009 Migraine without aura, not intractable, without status migrainosus (principal); G93.1 Anoxic brain damage, not elsewhere classified; G40.909 Epilepsy, unspecified, not intractable, without status epilepticus; R25.9 Unspecified abnormal involuntary movements; R47.1 Dysarthria and anarthria; R25.2 Cramp and spasm | CPT/HCPCS: 99212 ==

== ENCOUNTER 2025-05-11 12:54 | Outpatient (AMB) | payer OTHER, SELFPAY ==
[2025-05-11 13:08] VITALS: BP 100/60; PULSE 82; O2SAT 98; BMI 31.1
--- NOTE | 2025-05-11 13:08 | A.OFFVIS_ITS ---
Vital Signs 05/11/25 13:08 Height 5 ft 4 in Weight 181 lb BMI 31.1 BP 100/60 Blood Pressure Location Rt brachial Position Sitting Pulse 82 Pulse Source Pulse Oximeter Pulse Oximetry (%) 98 Oxygen Delivery Method Room Air Intake Visit Reasons: hospital f/u for seizure and fall ok [facility] [employer] Required: No Accompanied by: Self / Same As Patient Allergies bee venom protein (honey bee) Allergy (Severe, Verified 05/11/25 13:11) Anaphylaxis clindamycin Allergy (Severe, Verified 05/11/25 13:11) Anaphylaxis Penicillins Allergy (Severe, Verified 05/11/25 13:11) Anaphylaxis Sulfa (Sulfonamide Antibiotics) Allergy (Severe, Verified 05/11/25 13:11) Hives mayonnaise Allergy (Intermediate, Verified 05/11/25 13:11) Hives aspirin Allergy (Mild, Verified 05/11/25 13:11) Unknown rofecoxib (From Vioxx) Allergy (Unknown, Verified 05/11/25 13:11) Unknown erythromycin Allergy (Severe, Uncoded 05/11/25 13:11) Anaphylaxis HPI Comments Details: 65-year-old female presenting for urgent follow-up for recent fall in setting of involuntary movement disorder, seizure symptoms, and migraine management. She reports she had a mid-Sep [facility] Er eval for kidney stones, which she continues to have. She states she has an upcoming appointment with a [facility] brazer [facility]. Then on 05/02/2025, she reports she was in her dining room going to put something away, when she turned and fell face forward into the hutch. She does not recall actually falling. Her rushed in at the sound of her falling, and helped her up. She states afterward, she had an egg on the left forehead, nose pain, and a loose tooth. Then on 03/03, she woke up in the am, with a sharp pain running down from the neck into the back. So she went to [facility]. Maxillofacial, head, and c-spine CT, which were overall unremarkable. She was told the pain was likely due to sustaining whiplash during the fall. She left against medical advised as her had to go to work, and she was up and walking about. She was discharged home with a soft cervical collar, and was told to wear this through this Wed. In hindsight, patient feels that the fall was triggered by being exhausted after working at the [employer] all day. 05/04/2025, CT Head/Brain W/O Contrast, CT Cervical Spine W/O Contrast, CT Maxilloface W/O Contrast 1. No evidence of acute intracranial abnormality. 2. No evidence of acute fracture or dislocation of the cervical spine. 3. No facial bone fracture. She has been having increased headaches. Not taking Riboflavin and Magnesium as she has has lab work-up due for urology. She also notes increased loss of balance when she turns or bends over, which is worse since this recent fall. This is different from her history of vertigo which was associated with tinnitus. 01/27/2025, HPI: The patient has a history of hypoxic brain injury, which has resulted in dysar thria and spasticity. She reports experiencing involuntary movements and seizures, which are being managed with medication. In December, the patient experienced respiratory issues and was diagnosed with b ronchitis, for which she was prescribed doxycycline. Her condition worsened, leading to a diagnosis of pneumonia, and she was treated with additional medications. Later in December, the patient developed blisters on her left maxillary face and was diagnosed with herpes zoster (shingles). She experienced an allergic reaction to clindamycin following a dental procedure, which resulted in tongue swelling and throat closure, requiring emergency treatment. The patient reports experiencing vertigo, which was thought to be related to her respiratory conditions. She also reports chest discomfort during exertion, prompting a scheduled stress test. The patient has a history of pancreatitis, which has improved. she is now seeing [facility]. she is also following closely with her endocrinology, and states her hemoglobin A1c has improved- Per patient,last hemoglobin A1c was in the 7% range. She has been monitoring her diet to prevent further episodes. Headache Review - Headache Frequency: typically only has breakthrough migraine increased with heat and storms- at least 4-6 times month. - Reports increased frequency of headaches, exacerbated by heat and storms. - Headache alleviating factors: staying hydrated, neck fan - Uses Emgality for migraine management, but experiences issues with pharmacy supply. - She notes that she does not have Ubrelvy- not sure if she ever actually tried it before Social History - Employment: Works at [employer], reports exhaustion from work activities. - Family: - Exercise: Reports physical activity related to work. - Nutrition: Monitors diet due to diabetes and pancreatitis, consumes yogurt and water for lunch. Review of Systems - Respiratory: Reports dyspnea and respiratory issues, diagnosed with bronchitis and pneumonia. - Dermatological: Reports left facial shingles- has resolved. - Neurological: Reports increased headaches, vertigo, and involuntary movements. - Cardiovascular: Reports chest discomfort during exertion in the at night- and is scheduled to undergo medication induced stress test. - Gastrointestinal: Reports episodes of GI upset after eating, Medication History - Doxycycline: Prescribed for bronchitis, no adverse effects reported. - Clindamycin: Prescribed for shingles, caused allergic reaction with tongue swelling and throat closure. - Emgality: Used for migraine management, issues with pharmacy supply reported. - Gabapentin: Taken for restless leg syndrome, used at night. - Indomethacin: Taken for irritable bowel syndrome and restless leg syndrome, causes diarrhea if taken during the day. - Oxcarbazepine: Taken for seizure management, 300 mg twice daily. 07/09/2024, previous HPI: 64-yr-old female presents for urgent follow-up for increased ?spasticity and falls? in setting of seizure, involuntary movements, and migraine. Pt is accompanied by her . Pt reports that she has been having increased falls, however she clarifies this is one fall this past Sat. Patient had called the office with complaint of increased spasticity and shakiness. We trialed patient on diazepam 2 mg, which subsided the episode, but made her feel loopy so she only took 1 dose. Sense, she is still noticing increased shakiness and seizures, especially around 3am when she gets up to go to the bathroom or between 9am-2pm. The shakiness can be whole body, and can last between 5 minutes and an hour. The episode is harder to treat when it happens in public, such as when she is out at a restaurant. It usually responds to lorazepam, however can take longer for lorazepam to take effect now. is asking for an injectable version of lorazepam. She is is overall feeling more off-balance and weaker. Patient did undergo an interval brain MRI without contrast on 06/02/2024, which was unremarkable Patient also notes that she was admitted to [facility] on 06/25/24 d/t acute on chronic pancreatitis with clear trigger for acute exacerbation. Patient denies any alcohol intake Work-up was notable for: Elevated lipase 888H, on discharge decreased to 274 H. On 06/18/24, lipase was 26 NL Positive UA for WBC and bacteria- unfortunately I am not able to access culture report. Abd CT: No acute abnormality on noncontrast CT of the abdomen and pelvis. No imaging evidence for pancreatitis. No regional stranding or fluid collection. Recommend further correlation with pancreatic enzyme markers. There is similar atrophy of the pancreas with relative fullness at the level of the pancreatic head when compared to the CT of 06/05/2024 and 12/04/2021, which could relate to relative sparing. Pt states she was d/c'd home w/o home care services, though d/c paperwork indicates these were ordered. Since being home, pt notes she still has a poor appetite. She is feeling overall more week. [facility] Discharge Labs WBC 9.1 k/mm3 ()? 06/26/2024 06:05 RBC 3.96 m/mm3 (Low)? 06:05 Hgb 11.1 Gm/dL (Low)? 06/26/2024 06:05 Hct 34.0 % (Low)? 06:05 MCV 85.9 femtoliters ()? 06/26/2024 06:05 MCH 28.0 pg ()? 2023 06:05 MCHC 32.6 Gm/dL (Low)? 06/26/2024 06:05 Platelet Count 226 k/mm3 ()? 06/26/2024 06:05 RDW-SD 41.6 femtoliters ()? 06/26/2024 06:05 MPV 9.2 femtoliters (Low)? 06/26/2024 06:05 Nucleated RBC (Automated) 0.0 #/100 WBC'S ()? 06/26/2024 06:05 Abs. NRBC 0.0 k/mm3 ()? 06/26/2024 06:05 Abs. Neut 8.2 k/mm3 (High)? 06/25/2024 08:32 Abs. Lymph 1.5 k/mm3 ()? 08:32 Abs. Zavala 0.6 k/mm3 ()? 06/25/2024 08:32 Abs. Eo 0.1 k/mm3 ()? 08:32 Abs. Baso 0.0 k/mm3 ()? 06/25/2024 08:32 Neut % 78.0 % (High)? 06/25/20 08:32 Lymph % 14.3 % (Low)? 06/25/2024 08:32 Zavala % 6.0 % ()? 06/25/20 08:32 Eos % 1.0 % ()? 06/25/2024 08:32 Baso % 0.2 % ()? 06/25/20 08:32 Imm Gran 0.5 % ()? 06/25/2024 08:32 Abs. Imm Gran 0.1 k/mm3 ()? 08/25/2023 08:32 High Sensitivity Troponin (HSTnT) <6 ng/L ()? 06/25/2024 08:32 ? ? ? Sodium 136 mmol/L ()? 06/26/2024 06:05 Potassium 3.9 mmol/L ()? 06/26 06:05 Chloride 108 mmol/L (High)? 06/26/2024 06:05 Bicarbonate Level 25 mmol/L ()? 06/26/2024 06:05 Anion Gap 3 (Low)? 06/26/2024 06:05 Glucose Level 164 mg/dL (High)? 06/25/2024 08:32 Glucose, POC 96 mg/dL ()? 06/27/2024 07:04 BUN 15 mg/dL ()? 06/26/2024 06:05 Creatinine-Blood 0.65 mg/dL ()? 06/26/2024 06:05 Estimated GFR Creatinin e 99 ML/MIN/1.73 M2 ()? 06/26/2024 06:05 Calcium 9.0 mg/dL ()? 06/25/2024 08:32 Protein, Total 7.1 Gm/dL ()? 06/25/2024 08:32 Albumin 4.0 Gm/dL ()? 06/25/2024 08:32 AG Ratio 1.3 ()? 2023 08:32 Alkaline Phosphatase 164 units/L (High)? 06/25/2024 08:32 Lipase 274 units/L (High)? 06/26/2024 06:05 AST (SGOT) 15 units/L ()? 06/25/2024 08:32 ALT (SGPT) 24 units/L ()? 06/07 08:32 Bilirubin, Total 0.3 mg/dL ()? 06/25/2024 08:32 Lactate 1.3 mmol/L ()? 06/25/2024 08:32 UA/URINALYSIS Appear/Color, Urine YELLOW ()? 06/25/2024 09:35 Clarity SL.CLOUDY (Abnormal)? 06/25/2024 09:35 Specific Dale, Urine 1.025 ()? 06/25/2024 09:35 pH, Urine 5.5 ()? 06/25/2024 09:35 Albumin, Urine TRACE (Abnormal)? 06/25/2024 09:35 Glucose, Urine NEGATIVE (N)? 06/25/2024 09:35 Ketones, Urine NEGATIVE (N)? 06/25/2024 09:35 Bilirubin, Urine NEGATIVE (N)? 06/25/2024 09:35 Hemoglobin, Urine NEGATIVE (N)? 06/25/2024 09:35 Nitrite, Urine NEGATIVE (N)? 06/25/2024 09:35 Leukocyte, Urine 1+ (Abnormal)? 06/25/2024 09:35 Urobilinogen NORMAL mg/ dL (N)? 06/25/2024 09:35 WBC's, Urine 12 /HPF (High)? 06/25/2024 09:35 RBC's, Urine 1 /HPF ()? 09:35 Bacteria HEAVY HPF (Abnormal)? 06/25/2024 09:35 Squamous Epith 4 /HPF ()? 06/25/2024 09:35 Mucus SLIGHT /LPF ()? 06/25/2024 09:35 Budding Yeast HEAVY /HPF ()? 06/25/20 09:35 Hold Urine Culture Testing available 48 hours from time of collection. ()? 06/25/2024 09:35 ? ? ? PFS Medical History (Updated 05/11/25 @ 13:50 by DELBERT Breen) UTI (urinary tract infection) Bunion, left foot Torn medial meniscus FH: cholecystectomy Hypoxic brain injury Obstructive sleep apnea Surgical History History of reverse total replacement of right shoulder joint H/O: hysterectomy History of dilation and curettage History of ankle surgery Social History Household Members: Spouse Alcohol intake: former Patient Tobacco Use Status: Former Tobacco user service: Yes Current occupational status: employed, retired and disabled Current occupation: [employer] Vital Signs: Last Vital Signs Pulse 82 05/11/25 13:08 BP 100/60 05/11/25 13:08 Pulse Ox 98 05/11/25 13:08 Oxygen Delivery Method Room Air 05/11/25 13:08 BMI result Body Mass Index 31.1 Const General: cooperative and no acute distress Orientation/consciousness: patient oriented x3 Resp Effort & Inspection: normal respiratory effort and able to speak in complete sentences Neuro Other: Patient is at her baseline, other than wearing a soft cervical collar: Dysconjugate gaze. Mild dysarthria Left facial hemispasm- Slow to stand, gait unsteady at times w/o device. No tremor. General: patient oriented x3 Cognition (Neuro): normal cognition Psych Appearance: grossly normal Mental Status: mental status grossly normal Affect: normal affect Attitude: cooperative Assessment & Plan Assessment & Plan (1) Status post fall: Comment: 05/02/2025, Code(s): Z91.81 - History of falling Category: Medical (2) Migraine without aura: Code(s): G43.009 - Migraine without aura, not intractable, without status migrainosus Category: Medical Qualifiers: Intractability: not intractable Status migrainosus presence: without status migrainosus Qualified Code(s): G43.009 - Migraine without aura, not intractable, without status migrainosus (3) Hypoxic brain injury: Comment: In 1978 Code(s): G93.1 - Anoxic brain damage, not elsewhere classified Category: Medical (4) Abnormal movements: Code(s): R25.9 - Unspecified abnormal involuntary movements Category: Medical (5) Epilepsy: Code(s): G40.909 - Epilepsy, unspecified, not intractable, without status epilepticus Category: Medical Qualifiers: Epilepsy type: unspecified Intractability: not intractable Status epilepticus: without status epilepticus Qualified Code(s): G40.909 - Epilepsy, unspecified, not intractable, without status epilepticus (6) Dysarthria: Code(s): R47.1 - Dysarthria and anarthria Category: Medical (7) Spasticity: Code(s): R25.2 - Cramp and spasm Category: Medical Plan Reviewed [facility] novel ER notes, note there was no discharge summary, as patient had left against medical advice. Patient advised to continue her migraine, seizure, and involuntary treatment as below. Advised to stand up slowly, and when turning: slowly turn with both upper and lower body in alignment. Offered referral for PT, however patent will discuss w/ her PCP at the [facility]. Patient also advised that if she is to again fall and hit her head she should be evaluated in the ER with a head CT as she is on anti-platelet therapy, clopidogrel. General: Follow-up with GI, Cardiology, Endocrinology as scheduled. For seizures/spasticity/abnormal movements: * Continue Trileptal 300mg bid. * Continue Lorazepam 1mg daily at 09:00, may use b.i.d. p.r.n. shakiness, tremor (max 45 tabs per month) For episodic migraines: * For migraine prevention: * Continue Emgality 120 mg sc q month for migraine prevention.? Consider using a mail-order specialty pharmacy or [facility] if patient continues to have difficulty filling at local pharmacy. * Previous trials: Amitriptyline and Topamax- ineffective and not tolerated. * Treatment contraindications: All beta-blockers or antihypertensive agents due to risk for hypotension. * For acute migraine treatment: * Continue Ubrelvy 100mg prn, MR in 2 hrs (max 200mg per day). May adjunct with Tylenol 650-1000 mg every 4-6 hours as needed. * Continue GammaCore vagal nerve stimulator for both episodic migraine preventive and acute treatment. * Treatment contraindications: All triptans and DHE due to history of stroke and symptomatic generalized tonic-clonic seizure disorder. * Workplace accomodations for [employer]: Continue workplace accommodations including using covered umbrella, fan, access to hydration. Abstain from work during thunder storms. Pt to follow-up as scheduled or sooner prn. Coding Level of Care Code Est Pt Level 4 (11259) Diagnoses Status post fall Z91.81 Migraine without aura and without status migrainosus, not intractable G43.009 Intractability: not intractable Status migrainosus presence: without status migrainosus Hypoxic brain injury G93.1 Abnormal movements R25.9 Nonintractable epilepsy without status epilepticus, unspecified epilepsy type G40.909 Epilepsy type: unspecified Intractability: not intractable Status epilepticus: without status epilepticus Dysarthria R47.1 Spasticity R25.2
--- OUTSIDE RECORDS SUMMARY | 2025-05-11 15:16 | XMS_ITS | Clinical Summary ---
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 Not on ron e 12/01/2022 Are you concerned about learning? Not on file 12/01/2022 No 12/01/2022 No 12/01/2022 Digital Access Answer Date Recorded No 12/30/2022 No 12/30/2022 No 12/30/2022 Reliable internet access at home? Not on file 12/30/2022 Device with a working camera? Not on file Comments Unknown Sex and Gender Information Value Date Recorded Sex Assigned at Not on file Legal Sex Female 9:47 PM EDT Gender Identity Not on file Sexual Orientation Not on file Last Filed Vital Signs Vital Sign Reading Time Taken Comments Blood Pressure 114/72 10/07/2014 4:03 AM EST Pulse 84 10/07/2014 4:03 AM EST Temperature 36.7 C (98.1 F) 10/07/2014 4:03 AM EST Respiratory Rate - - Oxygen Saturation - - Inhaled Oxygen Concentration - - Weight 97.5 kg (215 lb) 10/07/2014 4:03 AM EST Height 165.1 cm (5' 5 ) 10/07/2014 4:03 AM EST Body Mass Index 35.78 10/07/2014 4:03 AM EST Plan of Treatment Health Maintenance Due Date Last Done Comments LIPID PANEL 1961 DEPRESSION SCREENING 1973 SMOKING Hx and SMOKELESS TOBACCO SCREENING 1974 HEPATITIS C SCREENING 1979 HIV ONE-TIME SCREENING (18-6 5 YEARS) 1979 PAP SMEAR 1982 MAMMOGRAM 2001 COLOGUARD 2006 COLONOSCOPY 2006 COLORECTAL CANCER SCREENING 2006 FIT TEST 2006 FOBT 2006 SIGMOIDOSCOPY 2006 VIRTUAL COLONOSCOPY 2006 PNEUMOCOCCAL VACCINES (50+ years) (1 of 1 - PCV) 2011 ZOSTER VACCINES (1 of 2) 2011 INFLUENZA VACCINE (#1) 2025 COVID-19 VACCINE (4 - 2024-2 6 season) 2025 06/17/2021, 10/30/2020, 10/02/2020 Adult Td,Tdap Booster 01/18/2031 01/18/2021 RSV VACCINE (1 - 1-dose 75+ series) 02/19/2036 HEPATITIS A VACCINES Aged Out No long er eligible based on patient's age to complete this topic HIB VACCINES Aged Out No longer eligi ble based on patient's age to complete this topic MENINGOCOCCAL VACCINES (ACWY) Aged Out No longer eligible based on patient's age to complete this topic MENINGOCOCCAL VACCINES (B) Aged Out N o longer eligible based on patient's age to complete this topic Medical Devices Not on file Additional Source Comments The information contained in this document represents components of the legal health record. It is not the complete legal health record.[facility]
--- OUTSIDE RECORDS SUMMARY | 2025-05-11 15:16 | XMS_ITS | Patient Health Record ---
Author Organization [facility] Address [address] [place] [address] Care Team Providers Care Poultry Husbandry Teacher Name Role Phone Lucy Friend MD Primary Care Provider Unavail able Roxane Green Unavailable [phone] Allergies Allergen (clinical drug ingredient) Drug/Non Drug Allergy documented on EMR Reaction Allergy Type Onset Date Status cat scan media (uncoded) Unknown Allergy Active aspirin Aspirin Unknown Drug Allergy Active Beclomethasone Dipropionate Unknown Drug Allergy Active erythromycin Erythromycin Unknown Drug Allergy A ctive Penicillin Unknown Drug Allergy Active pseudoephedrine Pseudoephedrine Unknown Drug Allergy Active Substance with sulfonamide structure and antibacterial mechanism of action (substance) Sulfa Antibiotics Unknown Drug Allergy Active Reason For Referral No Information Medications Medication SIG (Take, Route, Frequency, Duration) Notes Start Date End Date Status glipiZIDE 5 MG 1 tablet 30 minutes before breakfast Orally Once a day; Duration: 30 day(s) Active LORazepam 1 MG TAKE 1 TABLET BY [facility] 3 TIMES A DAY NEEDED FOR SEIZURE FOR 30 DAYS Oral; Duration: 30 Days prn Active Indomethacin 25 MG 1 capsule with food or milk Orally Twice a day; Duration: 30 day(s) Active Emgality 120 MG/ML Subcutaneous; Duration: 30 Days Active Lisinopril 5 MG 1 tablet Orally Once a day; Duration: 30 day(s) Not-Taking Ondansetron HCl 4 MG Oral; Duration: 10 Days Active metFORMIN HCl 500 MG 1 tablet with a edwar l Orally Once a day; Duration: 30 day(s) Active Clopidogrel Bisulfate 75 MG 1 tablet Orally Once a day; Duration: 30 day(s) Not-Taking traZODone HCl 100 MG 1 tablet at bedtime Orally Once a day; Duration: 30 day(s) Active Albuterol Not-Taking Ciprofloxacin HCl 500 MG Oral; Duration: 5 Days Not-Taking Atorvastatin Calcium 80 MG 1 tablet Oral ly Once a day; Duration: 30 day(s) Active oxyCODONE-Acetaminophen 5-325 MG Oral; Duration: 4 Days Activ e Gabapentin 300 MG 1 capsule Orally Onc e a day Active Cephalexin 500 MG TAKE 1 CAPSULE BY MOUTH FOUR TIMES A DAY FOR 7 DAYS Oral; Duration: 7 Days Not-Taking Multivitamin Active EpiPen Active OXcarbazepine 300 MG 1 tablet Orally Twi ce a day; Duration: 30 day(s) Active Calcium 600 MG 1 tablet with meals Orally Twice a day Active Sertraline HCl 50 MG 1 tablet Orally Onc e a day; Duration: 30 day(s) Active Plavix 75 MG 1 tablet Orally Once a day Active Social History Tobacco Use: Social History Observation Description Date Details (start date - stop date) Former Smoker NA - NA Tobacco Use/Smoking Question Answer Notes Are you a: former smoker Additional Findings: Tobacco Non-User Current no n-smoker Alcohol Screen Question Answer Notes Did you have a drink containing alcohol in the p ast year? No Points 0 Interpretation Negative Tobacco use other than smoking: Question Answer Notes Are you an other tobacco user? No Problems Problem Type SNOMED Code ICD Code Onset Dates Problem Status W/U Status Risk Notes Problem Acquired hammer toe of right foot (0887393472766837 ) Hammer toe of right foot (M20.41) Active confirmed Problem Acquired hammer toe of left foot (3800314143104349 ) Hammer toe of left foot (M20.42) Active confirmed Problem Type II diabetes mellitus without complication (306243046) Diabetes (E11.9) Active confirmed Problem Polyneuropathy due to type 2 diabetes mellitus (456200858) Type 2 diabetes mellitus with polyneuropathy (E11.42) Active confirmed Plan Of Treatment No Information Insurance Providers Payer Name Payer Address Payer Phone Subscriber Number Group Number Insured Name Patient Relationship to Insured Coverage Start Date Coverage End Date [employer] [address] [place] [address] [id number] Tatum Stubbs Self - patient is the insured Medical (General) History Medical History History ICD Code Anoxic encephalopathey legally blind Chronic Kidney Disease Clostridium Difficile (C-Diff) depressive disorder type II diabetes Exotropia Fibrocystic breast disease Hyperlipidemia Irritable bowel syndrome Migraines Obesity Palopathy Pancreatitis Chronic Pericarditis Post Concussion Syndrome Pseudoseizures Shoulder pain Stroke Urolithiasis Arthritis Broken bones Cataracts Diabetic Epilepsy Paralysis Chicken pox Joint implants/screws Brain Hypoxia Surgical History Surgery Date(Month/Year) cholecystectomy hysterectomy rotator cuff tear repair shoulder replacement kidney stones, stent 02/2023 both ankles
--- OUTSIDE RECORDS SUMMARY | 2025-05-11 15:16 | XMS_ITS | Encounter Summary ---
Author Organization [facility] Address [address] [place] [phone] Phone Care Team Providers Care Senior Project Leader/Team Lead Name Role Phone Unavailable Primary Care Provider Unavailabl e Encounter Details Date Type Department Care Team (Late st Contact Info) Description 10/10/2022 Procedure Pass OR Admitting Dept - Virtual Department [address] [place] [address] Social History Tobacco Use Types Packs/Day Years Used Date Smoking Tobacco: Never Assessed Comments Unknown Sex and Gender Information Value Date Recorded Sex Assigned at Not on file Legal Sex Female 9:47 PM EDT Gender Identity Not on file Sexual Orientation Not on file documented as of this encounter Plan of Treatment Not on file documented as of this encounter Visit Diagnoses Not on filedocumented in this encounter Additional Source Comments The information contained in this document represents components of the legal health record. It is not the complete legal health record.[facility]
--- OUTSIDE RECORDS SUMMARY | 2025-05-11 15:16 | XMS_ITS | Clinical Summary ---
Author Organization [facility] Address [address] [place] [address] Care Team Providers Care Programmer Engineering And Scientific Name Role Phone Fay Guerrero MD Primary Care Provider [phone] Social History Tobacco Use Types Packs/Day Years Used Date Smoking Tobacco: Never Assessed Comments Unknown Sex and Gender Information Value Date Recorded Sex Assigned at Not on file Legal Sex Female 8:51 PM EST Gender Identity Not on file Sexual Orientation Not on file Plan of Treatment Health Maintenance Due Date Last Done Comments Colorectal Cancer Screening: Colonoscopy 1960 DTaP,Tdap,and Td Vaccines (1 - Tdap) 02/19/1980 Cervical Cancer Screening: P ap Smear 1982 Pneumococcal Vaccine: 50+ Ye ars (1 of 1 - PCV) 2011 Zoster Vaccines (1 of 2) 2011 Breast Cancer Screening 03/18/2020 03/18/2018 HIV Screening 07/08/2022 Hepatitis C Screening 07/08/2022 Social Influencers of Health Screening 07/08/2022 Depression Screening 08/06/2024 COVID-19 Vaccine ( - 2023-2 5 season) 2025 Influenza Vaccine (#1) 2025 RSV Immunization Adult Patie nts (1 - 1-dose 75+ series) 02/19/2036 HIB Vaccines Aged Out No longer eligi ble based on patient's age to complete this topic HPV Vaccines Aged Out No longer eligi ble based on patient's age to complete this topic Hepatitis A Vaccines Aged Out No long er eligible based on patient's age to complete this topic Hepatitis B Vaccines Aged Out No long er eligible based on patient's age to complete this topic IPV Vaccines Aged Out No longer eligi ble based on patient's age to complete this topic MMR Vaccines Aged Out No longer eligi ble based on patient's age to complete this topic Meningococcal ACWY Vaccine Aged Out N o longer eligible based on patient's age to complete this topic Meningococcal B Vaccine Aged Out No l onger eligible based on patient's age to complete this topic RSV Immunization Patients Un shon 20 months Aged Out No longer eligible b ased on patient's age to complete this topic Varicella Vaccines Aged Out No longer eligible based on patient's age to complete this topic Procedures Procedure Name Priority Date/Time Associated Diagnosis Comments [facility] SCREENING DIGITAL Routine 03/18/2018 3:46 PM EDT Encounter for screening mammogram for malignant neoplasm of breast from Last 3 Months or Most Recently Relevant to Health Maintenance Results * [facility] SCREENING DIGITAL (03/18/2018 3:46 PM EDT) Anatomical Region Laterality Modality Mammography 03/18/2018 10:4 8 AM EDT Narrative 03/18/2018 3:46 PM EDT [facility] Diagnostic Imaging Department [address] [place] [address] Patient: TATUM STUBBS /Age/Sex: 1960 - 58 - F Unit#: [id number] [facility]/Ordering Site: DIGSC/SPMAM Ordering Physician: BELKIS LOGAN MD [facility] Screening Digital - 03/18/18 - 1153 INDICATION: SCREENING COMPARISON: [facility] mammograms dating back to 11/10/2013 FINDINGS: CC and MLO views of the breasts were obtained, using full field digital mammography with 3D tomosynthesis views in the MLO projection. Computer aided detection with the incuBET 7.2-H was employed. XCCL view of the left breast was obtained. The breasts contain scattered fibroglandular tissues. No suspicious masses, suspicious microcalcifications, or areas of architectural distortion are identified. There are no secondary signs of breast malignancy. Compared to the prior exam, no adverse interval change. IMPRESSION: No specific mammographic evidence of breast malignancy. Lack of a mammographic finding in the presence of a clinically suspicious palpable abnormality does not preclude the possibility of malignancy or alter the indications for biopsy. BI-RADS - Category 1: Negative 3341F, 7025F Annual screening mammography is recommended. Patient entered into a reminder system with a target date for the next mammogram. [id number] , [id number] Dictating Physician: RASHAD BARRETT MD Electronically Signed by: RASHAD BARRETT MD Dic Date/Time: 03/18/181542 Sign date/Time: 03/18/18 154 Procedure Note Rashad Barrett MD - 07/25/2022 [facility] Diagnostic Imaging Department [address] [place] [address] Patient: TATUM STUBBSO.B./Age/Sex: 1960 - 58 - F Unit#: [id number] [facility]onic/Ordering Site: [facility] Ordering Physician: BELKIS LOGAN MD [facility] Screening Digital - 03/18/18 - 1153 INDICATION: SCREENING COMPARISON: [facility] mammograms dating back to 11/10/2013 FINDINGS: CC and MLO views of the breasts were obtained, using full field digital mammography with 3D tomosynthesis views in the MLO projection. Computeraided detection with the incuBET 7.2-H was employed. XCCL view of theleft breast was obtained. The breasts contain scattered fibroglandular tissues. No suspicious masses, suspicious microcalcifications, or areas ofarchitectural distortion are identified. There are no secondary signs of breastmalignancy. Compared to the prior exam, no adverse interval change. IMPRESSION: No specific mammographic evidence of breast malignancy. Lack of a mammographic finding in the presence of a clinicallysuspicious palpable abnormality does not preclude the possibility of malignancy oralter the indications for biopsy. BI-RADS - Category 1: Negative 3341F, 7025F Annual screening mammography is recommended. Patient entered into a reminder system with a target date for the next mammogram. G0202 / [id number] , [id number] Dictating Physician: RASHAD BARRETT MD Electronically Signed by: RASHAD BARRETT MD Dic Date/Time: 03/18/18 1543 Sign date/Time: 03/18/18 1546 Belkis Logan MD IMG BI PROCEDURES Final Result from Last 3 Months or Most Recently Relevant to Health Maintenance Care Teams Programmer Engineering And Scientific Relationship Specialty Start Date End Date Fay Guerrero MD [address] [place] [address] PCP - General 01/14/24
== END 2025-05-11 13:50 | disposition home or self-care (01) ==
LOC: HO.HSMS 12:55
PROVIDERS: PCP Internal Medicine; Visit Provider Nurse Practitioner Family
DX: Z91.81 History of falling (principal); G43.009 Migraine without aura, not intractable, without status migrainosus; G93.1 Anoxic brain damage, not elsewhere classified; R25.9 Unspecified abnormal involuntary movements; G40.909 Epilepsy, unspecified, not intractable, without status epilepticus; R47.1 Dysarthria and anarthria; R25.2 Cramp and spasm
CPT/HCPCS: 99214

== ENCOUNTER → 2025-05-11 12:54 | Outpatient (BNVA) | payer OTHER, SELFPAY | PROVIDERS: PCP Internal Medicine; Visit Provider Nurse Practitioner Family | DX: G43.009 Migraine without aura, not intractable, without status migrainosus (principal); G40.909 Epilepsy, unspecified, not intractable, without status epilepticus; G93.1 Anoxic brain damage, not elsewhere classified; R25.9 Unspecified abnormal involuntary movements; R25.2 Cramp and spasm; R47.1 Dysarthria and anarthria; Z91.81 History of falling | CPT/HCPCS: 99212 ==

== ENCOUNTER 2025-07-21 08:24 | Outpatient (AMB) | payer OTHER, SELFPAY ==
--- NOTE | 2025-07-21 08:39 | A.OFFVIS_ITS ---
Vital Signs 07/21/25 08:40 Height 5 ft 4 in Weight 180 lb BMI 30.9 BP 100/75 Blood Pressure Location Lt brachial Position Sitting Pulse 75 Pulse Source Pulse Oximeter Pulse Oximetry (%) 97 Oxygen Delivery Method Room Air Intake Visit Reasons: 6 months follow up Lapel Stitcher Required: No Accompanied by: Spouse Allergies bee venom protein (honey bee) Allergy (Severe, Verified 07/21/25 08:40) Anaphylaxis clindamycin Allergy (Severe, Verified 07/21/25 08:40) Anaphylaxis Penicillins Allergy (Severe, Verified 07/21/25 08:40) Anaphylaxis Sulfa (Sulfonamide Antibiotics) Allergy (Severe, Verified 07/21/25 08:40) Hives mayonnaise Allergy (Intermediate, Verified 07/21/25 08:40) Hives aspirin Allergy (Mild, Verified 07/21/25 08:40) Unknown rofecoxib (From Vioxx) Allergy (Unknown, Verified 07/21/25 08:40) Unknown erythromycin Allergy (Severe, Uncoded 07/21/25 08:40) Anaphylaxis Medication List - Last Reconciled 07/21/25 by DELBERT Breen atorvastatin mg PO blood-glucose sensor (Dexcom G6 Sensor device) As directed clopidogrel 75 mg PO DAILY gabapentin 300 mg PO DAILY galcanezumab-gnlm (Emgality Pen) 120 mg subcut ONCE 30 days [gammacore saphire 2 2-minute stimulations to 1 side of the neck TID, may repeat in 20 minutes if no effect] indomethacin 25 mg PO BEDTIME lorazepam 1 mg PO TID PRN 30 days oxcarbazepine 300 mg PO BID 30 days sertraline 50 mg PO DAILY trazodone 100 mg PO BEDTIME ubrogepant (Ubrelvy) 50 - 100 mg (0.5 - 1 x 100 mg) PO ONCE PRN 30 days HPI Comments Details: History of Present Illness The patient is a 65 year old female presenting for seizure medication management due to concerns it may be related to her recurrent pancreatitis, in the setting of involuntary movement disorder, seizure symptoms, migraine management, and a remote history of . Patient is accompanied by her . Pancreatitis / Gastritis: - The patient reports she has been having severe bouts of pancreatitis, and that her [facility] GI has concern her seizure medication could be the trigger. - She was recently hospitalized at [facility] from May 31 to June 03 for this issue, where she experienced unbearable pain requiring morphine. - Her symptoms include flare-ups after eating, even small amounts, which has led to a fear of eating. - Her GI physician has noted inflammation in the stomach and duodenum. - An unspecified CT scan showed her spleen, liver, and pancreas were inflamed. - Labs from June 24 showed an elevated alkaline phosphatase of 191. - A new medication prescribed by GI was unaffordable at $500 per month. - She denies recent steroid use and reports no significant alcohol use for years. - In the past, Depakote caused pancreatitis and gallbladder and liver issues. Seizure and involuntary movement Disorder: - The patient's seizures and generalized muscle spasms are reportedly well- controlled on her current regimen of oxcarbazepine (Trileptal) 300 mg twice daily, gabapentin 300 mg daily at bedtime, and lorazepam. - She also experiences muscle spasms. - She has a history of trying multiple anti-seizure medications with intolerable side effects, including Depakote (pancreatitis), phenytoin (gum hyperplasia), topiramate (previously not tolerated, and would not be used now due to kidney stone history), and carbamazepine (fluctuating levels causing sleepiness). - She has also taken levetiracetam in the past but does not recall why it was stopped. Restless Leg Syndrome: - The patient treats her restless leg syndrome with indomethacin at nighttime, [facility]. Headache Review - The patient reports her headaches have been okay- occurring a couple of times month - She takes Emgality for her headaches with good effect - the Ubrelvy continues to be effective for breakthrough migraine attacks Social History - Alcohol Use: The patient states she has not used alcohol for years and does not drink frequently enough for it to be the cause of her pancreatitis. - Substance Use: The patient denies recent steroid use. - Nutrition: The patient reports an inability to eat even a small breakfast without experiencing pain, leading to avoidance of food. - Medication Access: The patient was unable to afford a $500/month medication prescribed by her GI physician and notes that the [facility] will not [facility] it. Results - Labs from June 24 2025: - Alkaline Phosphatase: 191 - AST: 23 - ALT: 36 - Bilirubin: 0.2 - Glucose: 283 - Sodium: 134 - Potassium: 4.4 - CBC: Within normal limits - Imaging: - CT Scan (date not specified): Spleen, liver, and pancreas were inflamed- per patient report [facility] Medical History (Updated 05/11/25 @ 13:50 by DELBERT Breen) UTI (urinary tract infection) Bunion, left foot Torn medial meniscus FH: cholecystectomy Hypoxic brain injury Obstructive sleep apnea Surgical History History of reverse total replacement of right shoulder joint H/O: hysterectomy History of dilation and curettage History of ankle surgery Social History Household Members: Spouse Alcohol intake: former Patient Tobacco Use Status: Former Tobacco user service: Yes Current occupational status: employed, retired and disabled Current occupation: Review of Systems Narrative Review of Systems - Gastrointestinal: Reports severe pain after eating, leading to a decreased desire to eat. Denies significant alcohol use. Physical Exam Exam Exam: Vital Signs: Last Vital Signs Pulse 75 07/21/25 08:40 BP 100/75 07/21/25 08:40 Pulse Ox 97 07/21/25 08:40 Oxygen Delivery Method Room Air 07/21/25 08:40 BMI result Body Mass Index 30.9 Const General: cooperative and no acute distress Resp Effort & Inspection: normal respiratory effort and able to speak in complete sentences Neuro Other: Alert and oriented x3 Dysconjugate gaze. Mild dysarthria Left facial hemispasm- Slow to stand, gait unsteady at times w/o device. No tremor. Psych Appearance: grossly normal Mental Status: mental status grossly normal Affect: normal affect Attitude: cooperative Assessment & Plan Assessment & Plan (1) Epilepsy: Code(s): G40.909 - Epilepsy, unspecified, not intractable, without status epilepticus Category: Medical Qualifiers: Epilepsy type: unspecified Intractability: not intractable Status epilepticus: without status epilepticus Qualified Code(s): G40.909 - Epilepsy, unspecified, not intractable, without status epilepticus (2) Abnormal movements: Code(s): R25.9 - Unspecified abnormal involuntary movements Category: Medical (3) Hypoxic brain injury: Comment: In 1977 Code(s): G93.1 - Anoxic brain damage, not elsewhere classified Category: Medical (4) Spasticity: Code(s): R25.2 - Cramp and spasm Category: Medical (5) Migraine without aura: Code(s): G43.009 - Migraine without aura, not intractable, without status migrainosus Category: Medical Qualifiers: Status migrainosus presence: without status migrainosus Intractability: not intractable Qualified Code(s): G43.009 - Migraine without aura, not intractable, without status migrainosus Plan Discussion Notes I discussed with the patient the complexity of her case, balancing seizure control with managing her recurrent reported pancreatitis symptoms, and recent note from her GI at [facility] noting possible gastritis as the primary etiology of her current GI symptoms. We reviewed the possibility that her current seizure medication, oxcarbazepine, could be contributing to her elevated liver function studies. I also identified her use of indomethacin for restless leg syndrome as a significant risk factor for the gastritis and stomach irritation she is experiencing. We reviewed her past anti-seizure medication trials and their side effects, c oncluding that Depakote, phenytoin, and topiramate are not suitable alternatives. I proposed a trial of transitioning to gabapentin, explaining that it is processed through the kidneys and is less likely to affect her pancreas or liver. I explained that increasing gabapentin may also help her muscle spasms and restless legs, potentially allowing her to stop the indomethacin. I suggested several strategies for her to discuss with the [facility] to manage her restless legs without indomethacin, including checking her ferritin and iron stores, and inquiring about a neuromodulation device. We agreed on a specific plan to decrease oxcarbazepine and increase gabapentin, and I will send these prescriptions and my note to [facility] providers [facility] the [facility]. We confirmed her upcoming appointments in October and February and the availability of telehealth check-ins if needed. Patient was informed and verbally consented to the use of an ambient scribe for clinic note documentation during this visit. Plan For seizures/spasticity/abnormal movements: * Decrease Trileptal from 300mg 250 mg twice daily * Increase gabapentin from 300 mg daily at bedtime to 300 mg 3 times per day * Continue Lorazepam 1mg daily at 09:00, may use b.i.d. p.r.n. shakiness, tremor (max 45 tabs per month) * Patient does not currently drive * Follow-up with GI regarding her GI symptoms * Call the office if your seizures return or if you have any bad side effects from the medication change. We can make adjustments if needed. For RLS: - The current treatment, indomethacin, is a risk factor for gastritis and should be discontinued if possible. - Recommended the patient ask her [facility] provider to check ferritin and iron stores, with a goal ferritin of >100; if low, iron supplementation (oral or IV) could be considered. - Increasing the gabapentin dose for seizure control also serves as a first-line therapy for restless leg syndrome. - Suggested exploring a non-pharmacological neuromodulation device, such as Nidra, for the legs as another alternative to indomethacin. For episodic migraines: * For migraine prevention: * Continue Emgality 120 mg sc q month for migraine prevention.? Consider using a mail-order specialty pharmacy or sending through the [facility] if patient continues to have difficulty filling at local pharmacy. * Previous trials: Amitriptyline and Topamax- ineffective and not tolerated. * Treatment contraindications: All beta-blockers or antihypertensive agents due to risk for hypotension. * For acute migraine treatment: * Continue Ubrelvy 100mg prn, MR in 2 hrs (max 200mg per day). May adjunct with Tylenol 650-1000 mg every 4-6 hours as needed. * Continue GammaCore vagal nerve stimulator for both episodic migraine preventive and acute treatment. * Treatment contraindications: All triptans and DHE due to history of stroke and symptomatic generalized tonic-clonic seizure disorder. Keep your scheduled follow-up appointments for October and February. Medications: New oxcarbazepine 150 mg PO DAILY 30 days 30 tabs 6RF oxcarbazepine 150 mg PO DAILY 30 tabs 6RF 30 days Changed From gabapentin 300 mg PO DAILY To gabapentin 300 mg PO TID 30 days 90 caps 6RF From lorazepam It is early refill 1 mg PO TID 30 days PRN 45 tabs 3RF seizure/movements To lorazepam 1 mg PO TID PRN 45 tabs 3RF seizure/movements 30 days Refilled galcanezumab-gnlm (Emgality Pen) 120 mg subcut ONCE 30 days 1 mL 6RF gabapentin 300 mg PO TID 90 caps 6RF 30 days ubrogepant (Ubrelvy) take at onset of migraine, may repeat in 2hrs (may take w/ Tylenol). PA VIVIANE ROVED 12/30/24-08/05/2099 50 - 100 mg (0.5 - 1 x 100 mg) PO ONCE PRN 16 tabs 6RF migraine headache 30 days galcanezumab-gnlm (Emgality Pen) 120 mg subcut ONCE 1 mL 6RF 30 days Discontinued oxcarbazepine Discontinued Reason: Doctor's Order 300 mg PO BID 30 days 60 tabs 3RF Coding Level of Care Code Est Pt Level 4 (41992) Diagnoses Nonintractable epilepsy without status epilepticus, unspecified epilepsy type G40.909 Epilepsy type: unspecified Intractability: not intractable Status epilepticus: without status epilepticus Abnormal movements R25.9 Hypoxic brain injury G93.1 Spasticity R25.2 Migraine without aura and without status migrainosus, not intractable G43.009 Status migrainosus presence: without status migrainosus Intractability: not intractable
[2025-07-21 08:40] VITALS: BP 100/75; PULSE 75; O2SAT 97; BMI 30.9
--- OUTSIDE RECORDS SUMMARY | 2025-07-21 08:47 | XMS_ITS | Clinical Summary ---
Author Organization [facility] Address [address] [place], [place] [address] Phone Care Team Providers Care Kitchen And Counter Worker Name Role Phone Unavailable Primary Care Provider [...] It is not the complete legal health record.[facility]
--- OUTSIDE RECORDS SUMMARY | 2025-07-21 08:47 | XMS_ITS | Encounter Summary ---
Author Organization [facility] Address [address] [place] [id number] Care Team Providers Care Medical Technologist Prn Name Role Phone Fay Guerrero MD Primary Care Provider [phone] Encounter Details Date Type Department Care Team (Late st Contact Info) Description 05/21/2025 Lab Requisition [facility] - Main Lab [address] [facility] [place] [address] Michael Cadena PA [address] [place] [address] Frequency of micturition Social History Tobacco Use Types Packs/Day Years Used Date Smoking Tobacco: Never Assessed Comments Unknown Sex and Gender Information Value Date Recorded Sex Assigned at Not on file Legal Sex Female 8:51 PM EST Gender Identity Not on file Sexual Orientation Not on file documented as of this encounter Plan of Treatment Not on file documented as of this encounter Procedures Procedure Name Priority Date/Time Associated Diagnosis Comments BACTERIAL IDENTIFICATION AND SUSCEPTIBILITY, AEROBIC Routine 05/20/2025 12:00 AM EDT Frequency of micturition documented in this encounter Results * Baterial identification and susceptibility, aerobic (05/20/2025 12:00 AM EDT) Culture, Bacterial ID and Sensitivity Mixed urogenital huma, no uropathogens present. Suggest repeat specimen, if clinically indicated. 05/21/2025 11:23 AM EDT [facility] ([facility] Urine Urine specimen from urethra / Unknown 05/20/2025 05/21/2025 10:53 AM EDT us Michael [facility] MICROBIOLOGY - GENERAL ORDERABLES Final Result [facility] ([facility]) [facility] [address] [place] [address], documented in this encounter Visit Diagnoses Diagnosis Frequency of micturition Urinary frequency documented in this encounter Care Teams Medical Technologist Prn Relationship Specialty Start Date End Date Fay Guerrero MD [address] [place] [address] PCP - General 01/14/24 documented as of this encounter
--- OUTSIDE RECORDS SUMMARY | 2025-07-21 08:47 | XMS_ITS | Patient Health Record ---
Author Organization [facility] Address [address] [place] [address] Care Team Providers Care Parcel Contractor Name Role Phone Lucy Friend MD Primary Care Provider Unavail able Roxane Green Unavailable [phone] Allergies Allergen (clinical drug ingredient) Drug/Non Drug [...] LORazepam 1 MG TAKE 1 TABLET BY [facility] 3 TIMES A DAY NEEDED FOR [...] Problem Acquired hammer toe of right foot (0326302032687741 ) Hammer toe of right foot (M20.41) Active confirmed Problem Acquired hammer toe of left foot (4973624220973554 ) Hammer toe of left foot (M20.42) Active confirmed Problem Type II diabetes mellitus without complication (248159197) Diabetes (E11.9) Active confirmed Problem Polyneuropathy due to type 2 diabetes mellitus (152389085) Type 2 diabetes mellitus with polyneuropathy (E11.42) Active confirmed Plan Of Treatment No Information Insurance Providers Payer Name Payer Address Payer Phone Subscriber Number Group Number Insured Name Patient Relationship to Insured Coverage Start Date Coverage End Date [employer] [address] [place] [address] [id number] Tatum Stubbs Self - patient is the [...]
--- OUTSIDE RECORDS SUMMARY | 2025-07-21 08:47 | XMS_ITS | Encounter Summary ---
Author Organization [facility] Address [address] [place] [address] Phone Care Team Providers Care Crime Analyst Name Role Phone Unavailable Primary Care Provider Unavailabl e Encounter Details Date Type Department Care Team (Late st Contact Info) Description 10/10/2022 Procedure Pass [place] Admitting Dept - Virtual Department [address] [place] [address] Social History Tobacco Use Types Packs/Day Years [...] It is not the complete legal health record.[facility]
--- OUTSIDE RECORDS SUMMARY | 2025-07-21 08:47 | XMS_ITS | Clinical Summary ---
Author Organization [address] [facility] Address [address] [place] [address] Phone Care Team Providers Care Risk Consulting Treasury Director Name Role Phone Fay Guerrero MD Primary Care Provider [phone] Encounters Date Type Department Care Team Description 05/21/[address] [facility] - Main Lab [address] [facility] [place] [address] Michael Cadena PA Frequency of micturition from Last 3 Months Social History Tobacco Use Types Packs/Day Years [...] HIV Screening 07/08/2022 Hepatitis C Screening 07/08/2022 Medicare Annual Wellness Visit 07/08/2022 Social Influencers of Health Screening 07/08/2022 Depression Screening 08/06/2024 COVID-19 Vaccine ( - 2024-2 6 season) 2025 Influenza Vaccine (#1) 2025 RSV [...] 05/20/2025 12:00 AM EDT Frequency of micturition [facility] SCREENING DIGITAL Routine 03/18/2018 3:46 PM EDT Encounter for screening mammogram for malignant neoplasm of breast from Last 3 Months or Most Recently Relevant to Health Maintenance Results * Baterial identification and susceptibility, aerobic (05/20/2025 12:00 AM EDT) Culture, Bacterial ID and Sensitivity Mixed urogenital huma, no uropathogens present. Suggest repeat specimen, if clinically indicated. 05/21/2025 11:23 AM EDT [facility] Urine Urine specimen from urethra / Unknown 05/20/2025 05/21/2025 10:53 AM EDT us Michael [facility] MICROBIOLOGY - GENERAL ORDERABLES Final Result [facility] [address] [place] [address], * [facility] SCREENING DIGITAL (03/18/2018 3:46 PM EDT) Anatomical Region Laterality Modality Mammography 03/18/2018 10:4 8 AM EDT Narrative 03/18/2018 3:46 PM EDT [facility] Diagnostic Imaging Department [address] [place] [address] Patient: TATUM STUBBS /Age/Sex: 1960 - 58 - F Unit#: [id number] Location/Status: SPDIMA/REG CLI Mnemonic/Ordering Site: [facility] Ordering Physician: BELKIS LOGAN MD Karri Screening Digital - 03/18/18 - 1153 INDICATION: SCREENING COMPARISON: [facility] mammograms dating back to 11/10/2013 FINDINGS: CC and MLO views of the breasts were obtained, using full field digital mammography with 3D tomosynthesis views in the MLO projection. Computer aided detection with the [employer] 7.2-H was employed. XCCL view of the [...] a target date for the next mammogram. ([id number] / [id number]) , [id number] Dictating Physician: RASHAD BARRETT MD Electronically Signed by: RASHAD BARRETT MD Dic Date/Time: 03/18/18 1543 Sign date/Time: 03/18/18 1546 Procedure Note Rashad Barrett MD - 07/25/2022 [facility] Diagnostic Imaging Department [address] [place] [address] Patient: TATUM STUBBS /Age/Sex: 1960 - 58 - F Unit#: [id number] Location/Status: [facility] CLI Mnemonic/Ordering Site: [facility] Ordering Physician: BELKIS LOGAN MD [facility] Screening Digital - 03/18/18 - 1153 INDICATION: SCREENING COMPARISON: [facility] mammograms dating back to 11/10/2013 FINDINGS: CC and MLO views of the breasts were obtained, using full field digital mammography with 3D tomosynthesis views in the MLO projection. Computeraided detection with the [employer] 7.2-H was employed. XCCL view of theleft [...] target date for the next mammogram. [id number] , [id number] Dictating Physician: RASHAD BARRETT MD Electronically Signed by: RASHAD BARRETT MD Dic Date/Time: 03/18/18 1543 Sign date/Time: 03/18/18 154 Belkis Logan MD IMG BI PROCEDURES Final Result from Last 3 Months or Most Recently Relevant to Health Maintenance Insurance MEDICARE Care Teams Risk Consulting Treasury Director Relationship Specialty Start Date End Date Fay Guerrero MD [address] [place] [address] PCP - General 01/14/24
== END 2025-07-21 15:05 | disposition home or self-care (01) ==
LOC: HO.HSMS 08:25
PROVIDERS: PCP Internal Medicine; Visit Provider Nurse Practitioner Family
DX: G40.909 Epilepsy, unspecified, not intractable, without status epilepticus (principal); R25.9 Unspecified abnormal involuntary movements; G93.1 Anoxic brain damage, not elsewhere classified; R25.2 Cramp and spasm; G43.009 Migraine without aura, not intractable, without status migrainosus
CPT/HCPCS: 99214

== ENCOUNTER → 2025-07-21 08:24 | Outpatient (BNVA) | payer OTHER, SELFPAY | PROVIDERS: PCP Internal Medicine; Visit Provider Nurse Practitioner Family | DX: G43.909 Migraine, unspecified, not intractable, without status migrainosus (principal); R25.9 Unspecified abnormal involuntary movements; R25.2 Cramp and spasm; G93.1 Anoxic brain damage, not elsewhere classified | CPT/HCPCS: 99212 ==